=== PATIENT | female | born 1945 | race Caucasian/White ===

== ENCOUNTER → 2018-02-23 11:43 | Outpatient (CLI) | payer MEDICARE, OTHER, SELFPAY ==
[2018-02-23 11:48] LABS: Adenovirus F 40/41, stool Not Detected (NotDetected); Astrovirus Not Detected (NotDetected); Campylobacter Not Detected (NotDetected); Clostridium Difficile A/B, PCR Not Detected (NotDetected); Cryptosporidium Not Detected (NotDetected); Cyclospora Cayetanesis Not Detected (NotDetected); Entamoeba histolytica Not Detected (NotDetected); Enteroaggregative E coli Not Detected (NotDetected); Enteropathogenic E coli Not Detected (NotDetected); Enterotoxigenic E coli Not Detected (NotDetected); Giardia lamblia Not Detected (NotDetected); Norovirus Not Detected (NotDetected); Plesimonas Shigalloides, PCR Not Detected (NotDetected); Rotavirus A Not Detected (NotDetected); Salmonella, PCR Not Detected (NotDetected); Sapovirus Not Detected (NotDetected); Shiga-like toxin E coli Not Detected (NotDetected); Shigella Enterovasive E coli Not Detected (NotDetected); Vibrio Cholerae Not Detected (NotDetected); Vibrio, PCR Not Detected (NotDetected); Yersinia Entercolitica, PCR Not Detected (NotDetected)
[2018-02-23 12:16] LABS: Basophils # 0.1 K/mm3 (0-0.2); Basophils % 0.6 % (0.1-2.0); Eosinophils # 0.2 K/mm3 (0.0-0.4); Eosinophils % 2.2 % (0.1-12.0); Hematocrit 46.1 % (37.0-47.0); Hemoglobin 14.9 g/dL (12.2-16.2); Lymphocytes % 23.8 K/mm3 (10-50); Mean Corpuscular HGB Conc 32.2 g/dL (31.8-35.4); Mean Corpuscular Hemoglobin 30.1 pg (27.0-31.2); Mean Corpuscular Volume 93.5 fl (81-99); Mean Platelet Volume 9.9 fl (7.4-10.4); Monocytes # 0.5 K/mm3 (0.1-1.0); Monocytes % 5.7 % (1.7-9.3); Neutrophils # 5.6 K/mm3 (1.8-7.8); Neutrophils % 67.6 % (37.0-80.0); Platelet Count 214 K/mm3 (142-424); Red Blood Count 4.93 M/mm3 (4.20-5.40); White Blood Count 8.3 K/mm3 (4.8-10.8)
[2018-02-23 12:49] LABS: Anion Gap 16.2 mEq/L (5-15); Blood Urea Nitrogen 23 mg/dL (7-18); Calcium 9.1 mg/dL (8.5-10.1); Carbon Dioxide 20 mmol/L (21.0-32.0); Chloride 110 mmol/L (98-107); Creatinine,Serum 1.15 mg/dL (0.55-1.02); Estimated Glomerular Filt Rate 46 ml/min (>60); GFR (African American) 56 ML/MIN (>60); Glucose 102 mg/dL (74-106); Potassium 3.2 mmoL/L (3.5-5.1); Sodium 143 mmol/L (136-145)
== END ==
PROVIDERS: PCP Internal Medicine; Visit Provider Internal Medicine
DX: K52.9 Noninfective gastroenteritis and colitis, unspecified (principal); I10 Essential (primary) hypertension; D50.9 Iron deficiency anemia, unspecified; I82.509 Chronic embolism and thrombosis of unspecified deep veins of unspecified lower extremity
CPT/HCPCS: 36415; 80048; 85025; 87507

== ENCOUNTER → 2018-02-27 15:45 | Outpatient (CLI) | payer MEDICARE, OTHER, SELFPAY ==
--- NOTE | 2018-02-27 15:56 | MM_ITS ---
MM Dig screening mamm BI w/CAD CAD Screening COMPARISON: Digital mammograms with CAD 02/15/2016 and 02/10/2015 INDICATION: There is no personal or family history of breast cancer. TECHNIQUE: Standard CC and MLO images were obtained. R2 CAD reviewed. FINDINGS: The breasts are composed primarily of fat with minimal scattered fiber glandular densities throughout each breast. However there is a possibly developing ill-defined area of increased density in the upper outer quadrant right breast with poorly defined borders. This in the could be a symmetric glandular tissue but recommend patient return for spot compression views in MLO and CC projection and ultrasound this proved to be a true lesion. There are few scattered benign-appearing calcifications in each breast. There are no suspicious microcalcifications. IMPRESSION: Fatty type breast parenchyma with possible developing asymmetric density right breast BI-RADS Category: 0 Need Additional Imaging Evaluation RECOMMENDED FOLLOW-UP: IMM - IMMEDIATE FOLLOW-UP RECOMMENDED (A letter has been sent to the patient regarding results of the study.)
== END ==
PROVIDERS: Family Provider Internal Medicine; PCP Internal Medicine; Visit Provider Internal Medicine
DX: Z12.31 Encounter for screening mammogram for malignant neoplasm of breast (principal)
CPT/HCPCS: 77067

== ENCOUNTER → 2018-03-13 14:14 | Outpatient (CLI) | payer MEDICARE, OTHER, SELFPAY ==
--- NOTE | 2018-03-13 14:20 | MM_ITS ---
MM Dig mamm DX unilat RT CAD INDICATION: Follow-up abnormal mammogram ORDERING PHYSICIAN: Timi Wen PATIENT AGE: 72 years COMPARISON: None TECHNIQUE: Spot compression views FINDINGS: Asymmetric density in the upper outer aspect of the right breast does appear to compress out as fibroglandular tissue. No discrete mass or malignant appearing microcalcification. Benign-appearing calcifications are present IMPRESSION: No evidence of malignancy BI-RADS Category: 2 Benign Finding(s) RECOMMENDED FOLLOW-UP: 1YR - 1 YEAR FOLLOW-UP (A letter has been sent to the patient regarding results of the study.)
== END ==
PROVIDERS: Family Provider Internal Medicine; PCP Internal Medicine; Visit Provider Internal Medicine
DX: R92.8 Other abnormal and inconclusive findings on diagnostic imaging of breast (principal)
CPT/HCPCS: 77065

== ENCOUNTER → 2018-06-13 10:47 | Outpatient (CLI) | payer MEDICARE, OTHER, SELFPAY ==
[2018-06-13 11:27] LABS: INR 3.28 (0.9-1.1); Prothrombin Time 32.6 seconds (9.4-11.8)
== END ==
PROVIDERS: Visit Provider Internal Medicine
DX: Z51.81 Encounter for therapeutic drug level monitoring (principal); Z79.01 Long term (current) use of anticoagulants; I82.409 Acute embolism and thrombosis of unspecified deep veins of unspecified lower extremity; I26.99 Other pulmonary embolism without acute cor pulmonale
CPT/HCPCS: 36415; 85610

== ENCOUNTER → 2018-06-29 14:10 | Outpatient (CLI) | payer MEDICARE, OTHER, SELFPAY ==
[2018-06-29 14:40] LABS: INR 1.57 (0.9-1.1)
== END ==
PROVIDERS: Visit Provider Internal Medicine
DX: Z51.81 Encounter for therapeutic drug level monitoring (principal); Z79.01 Long term (current) use of anticoagulants; I82.409 Acute embolism and thrombosis of unspecified deep veins of unspecified lower extremity
CPT/HCPCS: 36415; 85610

== ENCOUNTER → 2018-07-13 11:16 | Outpatient (CLI) | payer MEDICARE, OTHER, SELFPAY ==
[2018-07-13 11:43] LABS: Prothrombin Time 25.1 seconds (9.4-11.8)
== END ==
PROVIDERS: Visit Provider Internal Medicine
DX: Z51.81 Encounter for therapeutic drug level monitoring (principal); Z79.01 Long term (current) use of anticoagulants; I82.409 Acute embolism and thrombosis of unspecified deep veins of unspecified lower extremity; I26.99 Other pulmonary embolism without acute cor pulmonale
CPT/HCPCS: 36415; 85610

== ENCOUNTER → 2018-12-07 14:40 | Outpatient (CLI) | payer MEDICARE, OTHER, SELFPAY ==
[2018-12-07 15:26] LABS: INR 3.04 (0.9-1.1)
== END ==
PROVIDERS: Visit Provider Internal Medicine
DX: Z51.81 Encounter for therapeutic drug level monitoring (principal); Z79.01 Long term (current) use of anticoagulants; I82.409 Acute embolism and thrombosis of unspecified deep veins of unspecified lower extremity; I26.99 Other pulmonary embolism without acute cor pulmonale
CPT/HCPCS: 36415; 85610

== ENCOUNTER → 2019-01-18 15:30 | Outpatient (CLI) | payer MEDICARE, OTHER, SELFPAY ==
[2019-01-18 15:49] LABS: Basophils # 0.1 K/mm3 (0-0.2); Basophils % 0.6 % (0.1-2.0); Eosinophils # 0.2 K/mm3 (0.0-0.4); Eosinophils % 2.1 % (0.1-12.0); Hematocrit 39.7 % (37.0-47.0); Hemoglobin 12.4 g/dL (12.2-16.2); INR 2.33 (0.9-1.1); Lymphocytes # 2.3 K/mm3 (0.7-4.5); Lymphocytes % 30.1 % (10-50); Mean Corpuscular HGB Conc 31.3 g/dL (31.8-35.4); Mean Corpuscular Hemoglobin 28.7 pg (27.0-31.2); Mean Corpuscular Volume 91.8 fl (81-99); Mean Platelet Volume 10.1 fl (7.4-10.4); Monocytes # 0.3 K/mm3 (0.1-1.0); Monocytes % 4.4 % (1.7-9.3); Neutrophils # 4.7 K/mm3 (1.8-7.8); Neutrophils % 62.8 % (37.0-80.0); Platelet Count 191 K/mm3 (142-424); Prothrombin Time 23.3 seconds (9.4-11.8); Red Blood Count 4.32 M/mm3 (4.20-5.40); Red Cell Distribution Width 13.2 % (11.5-17.5); White Blood Count 7.5 K/mm3 (4.8-10.8)
== END ==
PROVIDERS: Visit Provider Internal Medicine
DX: I82.409 Acute embolism and thrombosis of unspecified deep veins of unspecified lower extremity (principal); I26.99 Other pulmonary embolism without acute cor pulmonale; Z79.01 Long term (current) use of anticoagulants
CPT/HCPCS: 85025; 85610

== ENCOUNTER 2019-12-15 11:29 | Emergency (ER) | payer MEDICARE, OTHER, SELFPAY ==
[2019-12-15 11:34] VITALS: BP 129/72; PULSE 84; RESP 16; TEMP 37.4; O2SAT 96; BMI 28.5
--- NOTE | 2019-12-15 11:57 | HMH.EDGENADL ---
ED Disposition Clinical Impression: Sciatica associated with disorder of lumbar spine Disposition: Home, Self-Care Condition on Discharge: Good Instructions: DI for Acute Pain -- Adult Prescriptions: Nabumetone 750 mg PO BID 10 Days #20 tab Prescription Printed Methocarbamol [Robaxin 500mg Tab*] 500 mg PO QID 10 Days #30 tab Prescription Printed Referrals: Timi Wen [Primary Care Provider] - - Critical Care Critical Care Time: No Attestation: On 12/15/19, the high probability of a clinically significant, sudden or life threatening deterioration of the following system(s) required my full and direct attention, intervention and personal management. The time I documented below is in addition to time spent performing reported procedures but includes the following listed in this critical care notation. Medical Decision Making - Medical Records Medical records reviewed: Yes: I reviewed the patient's medical records. - Luis Inquiry Pt receiving controlled substance: No Vital Signs: 12/15/19 11:34 Temperature 99.4 F Temperature Source Oral Pulse Rate [Right Radial] 84 Respiratory Rate 16 Blood Pressure [Right Arm] 129/72 Blood Pressure Mean [Right Arm] 91 Blood Pressure Source [Right Arm] Automatic Cuff Blood Pressure Position [Right Arm] Sitting 02 Sat by Pulse Oximetry 96 Oxygen Delivery Method Room Air - Lab Data Lab results reviewed: Yes: I reviewed the patient's lab results. General Adult HPI - General Chief complaint: PAIN Stated complaint: Rt. low back pain Time Seen by Provider: 12/15/19 11:57 Mode of Arrival: Wheelchair Limitations: No Limitations Description of Symptoms (Recalled from ER Triage Doc. by RN): Pt c/o lower back pain on the R side radiating down her R hip and leg. Pt reports she has had sciatic pain in the past, states this pain is similar. Pt reports pain present x4 days. - History of Present Illness HPI narrative: 73-year-old female comes in complaining of acute on chronic lower back pain. She states that she has had this back pain before that the pain, radiates down into her gluteal region and down the leg. She states that she has been a little more active the last few days than normal and she feels like that has exacerbated her sciatica. Patient denies any bowel or bladder incontinence patient denies any overt numbness or loss of muscle strength in the leg. Patient also denies any recent fever shakes or chills. - Related Data Home Medications Medication Instructions Recorded Confirmed Aspirin 81 mg PO DAILY 12/15/19 12/15/19 Ferrous Sulfate [Ferrous Sulfate 325 mg PO DAILY 12/15/19 12/15/19 325mg Tab] Warfarin Sodium [Coumadin 2.5mg 2.5 mg PO DAILY 12/15/19 12/15/19 tablet] Previous Rx's Medication Instructions Recorded Methocarbamol [Robaxin 500mg Tab*] 500 mg PO QID 10 Days #30 tab 12/15/19 Nabumetone 750 mg PO BID 10 Days #20 tab 12/15/19 Allergies Allergy/AdvReac Type Severity Reaction Status Date / Time oxaprozin Allergy Intermediate I-RASH Unverified 06/13/17 14:13 [facility] History - Hepatitis A Screen Drug use history?: No High risk sexual behaviors?: No History of sexually transmitted infection?: No Currently employed?: No Childcare worker?: No Do you have indoor plumbing?: Yes Do you have electricity?: Yes Attestation statement:: This patient has been screened for Hepatitis A risk factors. I have reviewed the patient's past medical history: Yes Medical History: Denies:: Diabetes Mellitus Type 1, Diabetes Mellitus Type 2 - Social History Alcohol Intake: never Occupational Status: employed ROS Obtained: Yes All systems reviewed & no additional complaints - Constitutional Constitutional: Reports system reviewed and no additional complaints, except as docu - Eyes Eyes: Reports system reviewed and no additional complaints, except as docu - ENT Ears, Nose, Mouth, and Throat: Reports system reviewed and
[2019-12-15 12:36] VITALS: BP 111/54; PULSE 80; RESP 18; TEMP 37.4; O2SAT 97
== END 2019-12-15 12:36 | disposition home or self-care (01) ==
PROVIDERS: Emergency Provider Family Medicine; PCP Internal Medicine
DX: M54.41 Lumbago with sciatica, right side (principal); Z88.8 Allergy status to other drugs, medicaments and biological substances; Z90.79 Acquired absence of other genital organ(s); Z86.711 Personal history of pulmonary embolism; Z79.01 Long term (current) use of anticoagulants; Z98.84 Bariatric surgery status
CPT/HCPCS: 99281

== ENCOUNTER → 2021-01-08 07:43 | Outpatient (CLI) | payer MEDICARE, OTHER, SELFPAY ==
[2021-01-08 08:22] LABS: Prothrombin Time 24.5 seconds (10.1-12.5)
== END ==
PROVIDERS: Visit Provider Internal Medicine
DX: Z51.81 Encounter for therapeutic drug level monitoring (principal); Z79.01 Long term (current) use of anticoagulants; I48.91 Unspecified atrial fibrillation
CPT/HCPCS: 36415; 85610

== ENCOUNTER 2021-06-19 14:25 | Emergency (ER) | payer MEDICARE, OTHER, SELFPAY ==
[2021-06-19 15:27] VITALS: BP 135/56; PULSE 78; RESP 18; TEMP 37.8; O2SAT 97; BMI 21.0
[2021-06-19 15:30] VITALS: BP 135/56; PULSE 68; O2SAT 96
--- NOTE | 2021-06-19 15:36 | XR_ITS ---
PROCEDURE INFORMATION: Exam: XR Chest Exam date and time: 06/19/2021 3:36 PM Age: 75 years old Clinical indication: Shortness of breath; Additional info: Covid, SOB TECHNIQUE: Imaging protocol: XR of the chest. Views: 2 views. COMPARISON: CR CXR CHEST(2 VIEWS-NOT PORTABLE) 09/21/2015 4:26 PM FINDINGS: Tubes, catheters and devices: Surgical clips in the epigastrium. Lungs: No definite acute pulmonary findings. No pulmonary consolidation. Lung volumes within normal limits. Minimal subsegmental atelectasis in the lateral periphery of the right upper lobe. Pleural spaces: Unremarkable. No significant pleural effusion. No pneumothorax. Heart/Mediastinum: The cardiac silhouette is normal. Bones/joints: Ankylosing thoracic spondyloarthropathy. Progressive arthritic changes at the glenohumeral joint and acromioclavicular joint. Other findings: Significant weight loss compared with the prior CT from 2016. IMPRESSION: 1. Minimal subsegmental atelectasis in the lateral upper right lung, no consolidation. 2. Additional nonemergency and chronic findings as above. 3. Note: Subtle ground-glass opacities of COVID-19 pneumonia can be radiographically occult on plain x-ray. If further imaging is warranted by the clinical findings or course, recommend CT.
[2021-06-19 15:46] LABS: Coronavirus 19, PCR Not Detected (NotDetected); Influenza A, PCR Not Detected (NotDetected); Influenza B, PCR Not Detected (NotDetected)
[2021-06-19 16:48] LABS: Basophils % 0.4 % (0.1-2.0); Eosinophils % 0.3 % (0.1-12.0); Hemoglobin 13.5 g/dL (12.2-16.2); Lymphocytes # 1.1 K/mm3 (0.7-4.5); Lymphocytes % 9.4 % (10-50); Mean Corpuscular HGB Conc 31.4 g/dL (31.8-35.4); Mean Corpuscular Hemoglobin 31.1 pg (27.0-31.2); Mean Corpuscular Volume 99.2 fl (81-99); Mean Platelet Volume 11.3 fl (7.4-10.4); Monocytes # 0.7 K/mm3 (0.1-1.0); Monocytes % 5.7 % (1.7-9.3); Neutrophils # 10.1 K/mm3 (1.8-7.8); Neutrophils % 84.3 % (37.0-80.0); Platelet Count 161 K/mm3 (142-424); Red Blood Count 4.33 M/mm3 (4.20-5.40); Red Cell Distribution Width 12.7 % (11.5-17.5); White Blood Count 11.9 K/mm3 (4.8-10.8)
[2021-06-19 16:49] LABS: Alanine Aminotransferase 18 U/L (12-78); Albumin Level 3.5 g/dl (3.5-5.0); Albumin/Globulin Ratio 1.4 (1.1-1.8); Alkaline Phosphatase 62 U/L (38-126); Anion Gap 7.6 mEq/L (5-15); Aspartate Amino Transferase 24 U/L (14-36); Bilirubin,Total 0.7 mg/dl (0.2-1.3); Blood Urea Nitrogen 16 mg/dl (7-17); Carbon Dioxide 31 mmol/L (22.0-30.0); Chloride 103 mmol/L (98-107); Creatinine Clearance Estimated 40 mL/min (50-200); Estimated Glomerular Filt Rate 82 ml/min (>60); GFR (African American) 99 ML/MIN (>60); Globulin 2.5 g/dL (1.3-3.2); Glucose 113 mg/dl (74-100); Potassium 3.6 mmoL/L (3.5-5.1); Sodium 138 mmol/L (136-145)
--- NOTE | 2021-06-19 18:05 | HMH.EDGENADL ---
ED Disposition Clinical Impression: Viral upper respiratory infection Disposition: Home, Self-Care Condition on Discharge: Good Instructions: DI for Viral Upper Respiratory Infection -- Adult Additional Instructions: Tylenol for fever, aches, pain. Rest and drink plenty of fluids. Off work until no fever for 24 hours and symptoms improved. Referrals: Timi Wen [Primary Care Provider] - - Critical Care Critical Care Time: No Attestation: On 06/19/21, the high probability of a clinically significant, sudden or life threatening deterioration of the following system(s) required my full and direct attention, intervention and personal management. The time I documented below is in addition to time spent performing reported procedures but includes the following listed in this critical care notation. Medical Decision Making - Luis Inquiry Pt receiving controlled substance: No Vital Signs: 06/19/21 15:27 06/19/21 15:30 Temperature 100.1 F H Temperature Source Oral Pulse Rate [Right Radial] 78 68 Respiratory Rate 18 Blood Pressure [Right Arm] 135/56 L 135/56 L Blood Pressure Mean [Right Arm] 82 82 Blood Pressure Source [Right Arm] Automatic Cuff Automatic Cuff Blood Pressure Position [Right Arm] Supine Supine 02 Sat by Pulse Oximetry 97 96 Oxygen Delivery Method Room Air Room Air - Lab Data Lab Results 06/19/21 15:14: SARS-CoV-2 (PCR) Not detected, Influenza A Untype (PCR) Not detected, Influenza Type B (PCR) Not detected 06/19/21 16:03: WBC 11.9 H, RBC 4.33, Hgb 13.5, Hct 43.0, MCV 99.2 H, MCH 31.1, MCHC 31.4 L, RDW 12.7, Plt Count 161, MPV 11.3 H, Neut % (Auto) 84.3 H, Lymph % (Auto) 9.4 L, [place] % (Auto) 5.7, Eos % (Auto) 0.3, Baso % (Auto) 0.4, Neut # (Auto) 10.1 H, Lymph # (Auto) 1.1, [place] # (Auto) 0.7, Eos # (Auto) 0.0, Baso # (Auto) 0.0 06/19/21 16:03: Sodium 138, Potassium 3.6, Chloride 103, Carbon Dioxide 31 H, Anion Gap 7.6, BUN 16, Creatinine 0.70, Estimated Creat Clear 40, Estimated GFR 82, Est GFR ( Amer) 99, Glucose 113 H, Calcium 9.0, Total Bilirubin 0.7, AST 24, ALT 18, Alkaline Phosphatase 62, Total Protein 6.0 L, Albumin 3.5, Globulin 2.5, Albumin/Globulin Ratio 1.4 Result diagrams: 06/19/21 16:03 06/19/21 16:03 Orders (Tests/Meds): ED MEDICATIONS Discontinued Medications Generic Name Dose Route Start Last Admin Trade Name Levar PRN Reason Stop Dose Admin Acetaminophen 500 mg 06/19/21 15:37 06/19/21 15:45 Acetaminophen 500mg Tab PO 06/19/21 15:38 500 mg ONCE ONE Administration - Radiology Data #1 Image(s): Chest Image Reviewed: Yes I reviewed the patient's radiology image, Yes I have reviewed radiologist's interpretation PROCEDURE INFORMATION: Exam: XR Chest Exam date and time: 06/19/2021 3:36 PM Age: 75 years old Clinical indication: Shortness of breath; Additional info: [place], SOB TECHNIQUE: Imaging protocol: XR of the chest. Views: 2 views. COMPARISON: CR CXR CHEST(2 VIEWS-NOT PORTABLE) 09/21/2015 4:26 PM FINDINGS: Tubes, catheters and devices: Surgical clips in the epigastrium. Lungs: No definite acute pulmonary findings. No pulmonary consolidation. Lung volumes within normal limits. Minimal subsegmental atelectasis in the lateral periphery of the right upper lobe. Pleural spaces: Unremarkable. No significant pleural effusion. No pneumothorax. Heart/Mediastinum: The cardiac silhouette is normal. Bones/joints: Ankylosing thoracic spondyloarthropathy. Progressive arthritic changes at the glenohumeral joint and acromioclavicular joint. Other findings: Significant weight loss compared with the prior CT from 2016. IMPRESSION: 1. Minimal subsegmental atelectasis in the lateral upper right lung, no consolidation. 2. Additional nonemergency and chronic findings as above. 3. Note: Subtle ground-glass opacities of COVID-19 pneumonia can be radiographically occult on plain x-ray. If further imaging
[2021-06-19 19:15] VITALS: BP 113/74; PULSE 74; RESP 16; TEMP 36.6; O2SAT 98
== END 2021-06-19 19:16 | disposition home or self-care (01) ==
PROVIDERS: Emergency Provider Emergency Medicine; PCP Internal Medicine
DX: J06.9 Acute upper respiratory infection, unspecified (principal); Z20.822 Contact with and (suspected) exposure to COVID-19
CPT/HCPCS: 71046; 80053; 85025; 99282; C9803; U0003; U0005

== ENCOUNTER → 2021-06-23 09:46 | Outpatient (CLI) | payer MEDICARE, OTHER, SELFPAY ==
--- NOTE | 2021-06-23 16:21 | XR_ITS ---
PROCEDURE INFORMATION: Exam: XR Chest Exam date and time: 06/23/2021 4:21 PM Age: 75 years old Clinical indication: Fever; Additional info: Fever, cough, negative covid test TECHNIQUE: Imaging protocol: XR of the chest. Views: 2 views. COMPARISON: CR XR CHEST 2V 06/19/2021 3:55 PM FINDINGS: Lungs: Unremarkable. No consolidation. Pleural spaces: Unremarkable. No pleural effusion. No pneumothorax. Heart/Mediastinum: Unremarkable. No cardiomegaly. Bones/joints: Unremarkable. IMPRESSION: No acute findings.
[2021-06-23 16:43] LABS: Basophils % 0.2 % (0.1-2.0); Eosinophils % 0.2 % (0.1-12.0); Hematocrit 39.1 % (37.0-47.0); Hemoglobin 12.4 g/dL (12.2-16.2); Lymphocytes # 1.4 K/mm3 (0.7-4.5); Lymphocytes % 9.6 % (10-50); Mean Corpuscular HGB Conc 31.8 g/dL (31.8-35.4); Mean Corpuscular Hemoglobin 31.1 pg (27.0-31.2); Mean Corpuscular Volume 97.8 fl (81-99); Mean Platelet Volume 10.7 fl (7.4-10.4); Monocytes # 0.7 K/mm3 (0.1-1.0); Monocytes % 4.6 % (1.7-9.3); Neutrophils # 12.9 K/mm3 (1.8-7.8); Neutrophils % 85.4 % (37.0-80.0); Platelet Count 235 K/mm3 (142-424); Red Cell Distribution Width 12.8 % (11.5-17.5); White Blood Count 15.1 K/mm3 (4.8-10.8)
[2021-06-23 16:45] LABS: MANUAL DIFFERENTIAL MANUAL DIFFERENTIAL (MANUAL DIFF)
[2021-06-23 17:03] LABS: INR 5.11 (0.9-1.1); Prothrombin Time 51.2 seconds (10.1-12.5)
[2021-06-23 17:05] LABS: Chloride 105 mmol/L (98-107); Potassium 3.2 mmoL/L (3.5-5.1); Sodium 140 mmol/L (136-145)
[2021-06-23 17:09] LABS: Anion Gap 10.2 mEq/L (5-15); Calcium 8.1 mg/dl (8.4-10.2); Carbon Dioxide 28 mmol/L (22.0-30.0); Glucose 100 mg/dl (74-100)
[2021-06-23 17:13] LABS: Blood Urea Nitrogen 15 mg/dl (7-17); Estimated Glomerular Filt Rate 82 ml/min (>60); GFR (African American) 99 ML/MIN (>60)
[2021-06-23 19:39] LABS: Lymphocytes % 10 % (10-50); Monocytes % 8 % (2-9); Neutrophils % 74 % (42-76); Platelet Estimate Normal; RBC Morphology Normal; Total Cells Counted 100
== END ==
PROVIDERS: PCP Internal Medicine; Visit Provider Internal Medicine
DX: Z20.822 Contact with and (suspected) exposure to COVID-19 (principal); R50.9 Fever, unspecified; R05.9 Cough, unspecified; Z51.81 Encounter for therapeutic drug level monitoring; Z79.01 Long term (current) use of anticoagulants
CPT/HCPCS: 36415; 71046; 80048; 85007; 85025; 85610; 85730; 87275; 87276; C9803; U0003; U0005

== ENCOUNTER → 2021-06-29 16:35 | Outpatient (CLI) | payer MEDICARE, OTHER, SELFPAY ==
[2021-06-29 17:22] LABS: INR 1.33 (0.9-1.1); Prothrombin Time 14.7 seconds (10.1-12.5)
== END ==
PROVIDERS: Visit Provider Internal Medicine
DX: T45.511A Poisoning by anticoagulants, accidental (unintentional), initial encounter (principal)
CPT/HCPCS: 85610

== ENCOUNTER → 2021-07-13 22:55 | Outpatient (CLI) | payer MEDICARE, OTHER, SELFPAY ==
[2021-07-13 23:30] LABS: INR 1.49 (0.9-1.1); Prothrombin Time 16.3 seconds (10.1-12.5)
== END ==
PROVIDERS: Visit Provider Internal Medicine
DX: T45.511D Poisoning by anticoagulants, accidental (unintentional), subsequent encounter (principal); Z51.81 Encounter for therapeutic drug level monitoring
CPT/HCPCS: 85610

== ENCOUNTER 2021-08-04 19:33 | Emergency (ER) | payer MEDICARE, OTHER, SELFPAY ==
[2021-08-04 19:33] VITALS: BP 142/73; PULSE 86; RESP 16; TEMP 37; O2SAT 99; BMI 22.0
[2021-08-04 19:46] VITALS: BP 177/65; PULSE 87; O2SAT 99
--- NOTE | 2021-08-04 19:49 | HMH.EDGENADL ---
ED Disposition Condition on Discharge: Good - Critical Care Critical Care Time: No <Zafar Lynn - Last Filed: 08/04/21 19:49> <Tad Weinstein - Last Filed: 08/04/21 22:40> Clinical Impression: Prolonged INR Hematuria Qualifiers: Hematuria type: gross Qualified Code(s): R31.0 - Gross hematuria Gastritis Qualifiers: Gastritis type: unspecified gastritis Chronicity: unspecified Gastritis bleeding: without bleeding Qualified Code(s): K29.70 - Gastritis, unspecified, without bleeding Disposition: Home, Self-Care Instructions: DI for Hematuria Additional Instructions: hold nsaif and coumadin - call pcp in am Referrals: Timi Wen [Primary Care Provider] - Attestation: On 08/04/21, the high probability of a clinically significant, sudden or life threatening deterioration of the following system(s) required my full and direct attention, intervention and personal management. The time I documented below is in addition to time spent performing reported procedures but includes the following listed in this critical care notation. Medical Decision Making - Medical Records Medical records reviewed: Yes: I reviewed the patient's medical records. - Luis Inquiry Pt receiving controlled substance: No <Zafar Lynn - Last Filed: 08/04/21 19:49> - Lab Data Lab results reviewed: Yes: I reviewed the patient's lab results. Result diagrams: 08/04/21 19:52 08/04/21 19:52 - CT Data CT Scan: Abdomen, Pelvis Time Received: 22:[address] Reviewed: Yes: I have viewed the radiologist's interpretation Preliminary Findings: Abnormal (see report ) <Tad Weinstein - Last Filed: 08/04/21 22:40> Vital Signs: 08/04/21 19:33 08/04/21 19:46 08/04/21 19:57 Temperature 98.6 F Temperature Source Oral Pulse Rate 87 87 Pulse Rate [Left] 86 Respiratory Rate 16 Blood Pressure 177/65 H 142/73 H Blood Pressure [Right Arm] 142/73 H Blood Pressure Mean [Right Arm] 96 02 Sat by Pulse Oximetry 99 99 98 08/04/21 20:00 08/04/21 20:30 Temperature Temperature Source Pulse Rate 91 H 71 Pulse Rate [Left] Respiratory Rate Blood Pressure 159/75 H 130/63 Blood Pressure [Right Arm] Blood Pressure Mean [Right Arm] 02 Sat by Pulse Oximetry 98 99 - Lab Data Lab Results 08/04/21 19:44: Urine Color Red, Urine Appearance Turbid, Urine pH 6.5, Ur Specific [place] >= 1.030, Urine Protein 3+, Urine Glucose (UA) Negative, Urine Ketones Trace, Urine Blood 3+, Urine Nitrate Positive, Urine Bilirubin Negative, Urine Urobilinogen 0.2, Ur Leukocyte Esterase Negative, Urine RBC Tntc 08/04/21 19:52: WBC 10.8, RBC 3.57 L, Hgb 11.1 L, Hct 35.2 L, MCV 98.8, MCH 31.0, MCHC 31.4 L, RDW 13.8, Plt Count 216, MPV 10.0, Neut % (Auto) 78.0, Lymph % (Auto) 16.1, [place] % (Auto) 3.4, Eos % (Auto) 1.5, Baso % (Auto) 0.9, Neut # (Auto) 8.4 H, Lymph # (Auto) 1.7, [place] # (Auto) 0.4, Eos # (Auto) 0.2, Baso # (Auto) 0.1 08/04/21 19:52: Sodium 141, Potassium 3.8, Chloride 110 H, Carbon Dioxide 26, Anion Gap 8.8, BUN 25 H, Creatinine 0.80, Estimated Creat Clear 39, Estimated GFR 70, Est GFR ( Amer) 85, Glucose 118 H, Calcium 9.3, Total Bilirubin 0.6, AST 62 H, ALT 55, Alkaline Phosphatase 77, Total Protein 6.6, Albumin 3.9, Globulin 2.7, Albumin/Globulin Ratio 1.4 08/04/21 19:52: ESR 60 H 08/04/21 19:52: C-Reactive Protein 20.2 H 08/04/21 19:54: PT 90.0 H, INR 8.00 H 08/04/21 19:54: Procalcitonin 0.064 Orders (Tests/Meds): ED MEDICATIONS Discontinued Medications Generic Name Dose Route Start Last Admin Trade Name Freq PRN Reason Stop Dose Admin Iopamidol 75 ml 08/04/21 21:35 08/04/21 21:38 Iopamidol-370 (76%);100ml Bottle IV 08/04/21 21:36 75 ml ONCE ONE Administration Phytonadione 5 mg 08/04/21 22:27 Phytonadione 10mg/Ml Ampule SQ 08/04/21 22:28 ONCE ONE Sodium Chloride 10 ml 08/04/21 21:35 08/04/21 21:38 Sodium Chloride 0.9% 10ml Syr (Rad Only) IV 08/04/21 21:36 10 ml
[2021-08-04 19:52] LABS: Microscopic, Urine URINE MICROSCOPIC (MICROSCOPIC)
[2021-08-04 19:57] VITALS: BP 142/73; PULSE 87; O2SAT 98
[2021-08-04 20:00] VITALS: BP 159/75; PULSE 91; O2SAT 98
[2021-08-04 20:10] LABS: Basophils # 0.1 K/mm3 (0-0.2); Basophils % 0.9 % (0.1-2.0); Eosinophils # 0.2 K/mm3 (0.0-0.4); Eosinophils % 1.5 % (0.1-12.0); Hematocrit 35.2 % (37.0-47.0); Hemoglobin 11.1 g/dL (12.2-16.2); Lymphocytes # 1.7 K/mm3 (0.7-4.5); Lymphocytes % 16.1 % (10-50); Mean Corpuscular HGB Conc 31.4 g/dL (31.8-35.4); Mean Corpuscular Volume 98.8 fl (81-99); Monocytes # 0.4 K/mm3 (0.1-1.0); Monocytes % 3.4 % (1.7-9.3); Neutrophils # 8.4 K/mm3 (1.8-7.8); Platelet Count 216 K/mm3 (142-424); Red Blood Count 3.57 M/mm3 (4.20-5.40); Red Cell Distribution Width 13.8 % (11.5-17.5); White Blood Count 10.8 K/mm3 (4.8-10.8)
[2021-08-04 20:29] LABS: Appearance,Urine TURBID (Clear); Blood, Urine 3+ (Negative); Color,Urine RED (Yellow); Glucose,Urine (UA) Negative (Negative); Ketones,Urine TRACE (Negative); Leukocyte Esterase,Urine Negative (Negative); Nitrate,Urine POSITIVE (Negative); PH,Urine 6.5 (5.0-8.5); Protein,Urine 3+ (Negative); Specific Gravity, Urine >= 1.030 (1.005-1.030); Urobilinogen,Urine 0.2 EU/dl (0.2)
[2021-08-04 20:30] VITALS: BP 130/63; PULSE 71; O2SAT 99
[2021-08-04 20:33] LABS: Bilirubin,Urine Negative (Negative)
[2021-08-04 20:35] LABS: RBC,Urine TNTC #/hpf (0-3)
[2021-08-04 20:42] LABS: Alanine Aminotransferase 55 U/L (12-78); Albumin Level 3.9 g/dl (3.5-5.0); Albumin/Globulin Ratio 1.4 (1.1-1.8); Alkaline Phosphatase 77 U/L (38-126); Anion Gap 8.8 mEq/L (5-15); Aspartate Amino Transferase 62 U/L (14-36); Bilirubin,Total 0.6 mg/dl (0.2-1.3); Blood Urea Nitrogen 25 mg/dl (7-17); Calcium 9.3 mg/dl (8.4-10.2); Carbon Dioxide 26 mmol/L (22.0-30.0); Chloride 110 mmol/L (98-107); Creatinine Clearance Estimated 39 mL/min (50-200); Estimated Glomerular Filt Rate 70 ml/min (>60); GFR (African American) 85 ML/MIN (>60); Globulin 2.7 g/dL (1.3-3.2); Glucose 118 mg/dl (74-100); Potassium 3.8 mmoL/L (3.5-5.1); Sodium 141 mmol/L (136-145); Total Protein,Serum 6.6 g/dl (6.3-8.2)
--- NOTE | 2021-08-04 21:09 | CT_ITS ---
PROCEDURE INFORMATION: Exam: CT Abdomen And Pelvis With Contrast Exam date and time: 08/04/2021 9:09 PM Age: 75 years old Clinical indication: Other: Vaginal or gi bleeding; Prior surgery TECHNIQUE: Imaging protocol: Computed tomography of the abdomen and pelvis with contrast. Radiation optimization: All CT scans at this facility use at least one of these dose optimization techniques: automated exposure control; mA and/or kV adjustment per patient size (includes targeted exams where dose is matched to clinical indication); or iterative reconstruction. Contrast material: ISOVUE; Contrast volume: 75 ml; Contrast route: IV; COMPARISON: CR XR CHEST 2V 06/23/2021 4:23 PM FINDINGS: Lungs: Scattered ground-glass opacities in the lung bases concerning for pneumonia. Liver: Normal. No mass. Gallbladder and bile ducts: Cholecystectomy. Mild intrahepatic and common bile duct dilatation could be due to post cholecystectomy state. Pancreas: Normal. No ductal dilation. Spleen: Normal. No splenomegaly. Adrenal glands: Normal. No mass. Kidneys and ureters: Normal. No hydronephrosis. Stomach and bowel: There is gastric wall thickening most pronounced involving the pyloric region concerning for severe gastritis. No small bowel obstruction. No colitis. Appendix: No evidence of appendicitis. Intraperitoneal space: Unremarkable. No free air. No significant fluid collection. Vasculature: IVC filter. Lymph nodes: Unremarkable. No enlarged lymph nodes. Urinary bladder: Unremarkable as visualized. Reproductive: Hysterectomy. Bones/joints: Posterior lumbar fusion at L4-L5. Soft tissues: Unremarkable. IMPRESSION: 1. The scattered areas of pneumonia in the lung bases and mild atelectasis. 2. Severe gastritis. 3. Cholecystectomy. 4. No acute renal abnormality. COMMENTS: For patients with an IVC filter, recommend assessment for a management plan for the patient's IVC filter. If there is no established management plan, recommend referral to an interventional clinician on a nonemergent basis for evaluation.
[2021-08-04 21:38] LABS: C-Reactive Protein 20.2 mg/L (0-4)
[2021-08-04 22:03] LABS: Procalcitonin 0.064 ng/mL (0.0-2.0)
[2021-08-04 22:04] LABS: Erythrocyte Sedimentation Rate 60 mm/hr (0-30)
[2021-08-04 23:13] VITALS: BP 125/54; PULSE 72; RESP 19; TEMP 36.8; O2SAT 97
== END 2021-08-04 23:30 | disposition home or self-care (01) ==
PROVIDERS: Emergency Medicine; Emergency Provider Emergency Medicine; PCP Internal Medicine
DX: K29.70 Gastritis, unspecified, without bleeding (principal); R31.0 Gross hematuria; R79.1 Abnormal coagulation profile; Z79.899 Other long term (current) drug therapy
CPT/HCPCS: 74177; 80053; 81001; 84145; 85025; 85610; 85651; 86140; 87086; 87088; 87186; 96372; 99282; Q9967

== ENCOUNTER 2021-08-05 15:45 | Emergency (ER) | payer MEDICARE, OTHER, SELFPAY ==
[2021-08-05] VITALS (8 sets, daily range): BP systolic 116–146; BP diastolic 33–75; PULSE 76–87; RESP 12–29; TEMP 36.6–38.1; O2SAT 98–99; BMI 21.3; BMI 22.8
--- NOTE | 2021-08-05 16:28 | CT_ITS ---
PROCEDURE INFORMATION: Exam: CT Head Without Contrast Exam date and time: 08/05/2021 4:28 PM Age: 75 years old Clinical indication: Weakness, extremity; Additional info: Headache, generalized weakness TECHNIQUE: Imaging protocol: Computed tomography of the head without contrast. Radiation optimization: All CT scans at this facility use at least one of these dose optimization techniques: automated exposure control; mA and/or kV adjustment per patient size (includes targeted exams where dose is matched to clinical indication); or iterative reconstruction. COMPARISON: No relevant prior studies available. FINDINGS: Brain: Acute subdural hemorrhage in the right frontal region. Maximum thickness of the hemorrhage is 1.7 cm. Thin acute hemorrhage also seen in the right parafalcine region. There is a 2-3 mm of leftward midline shift. Cerebral ventricles: No ventriculomegaly. Paranasal sinuses: Visualized sinuses are unremarkable. No fluid levels. Mastoid air cells: Visualized mastoid air cells are well aerated. Bones/joints: Unremarkable. No acute fracture. Soft tissues: Unremarkable. IMPRESSION: Right frontal and right parafalcine acute subdural hemorrhage. Minor leftward midline shift.
--- NOTE | 2021-08-05 16:48 | HMH.EDGENADL ---
ED Disposition Clinical Impression: Subdural hematoma, Gross hematuria Disposition: Xfer Short-Term Hosp Condition on Discharge: Serious Referrals: Timi Wen [Primary Care Provider] - Forms: Transfer Record - ED - Critical Care Critical Care Time: Yes Attestation: On 08/05/21, the high probability of a clinically significant, sudden or life threatening deterioration of the following system(s) required my full and direct attention, intervention and personal management. The time I documented below is in addition to time spent performing reported procedures but includes the following listed in this critical care notation. Total Critical Care Time: 45 Vital system(s) involved:: Central Nervous System My critical care processes included: Assessment & monitoring of V/S, Initial and Re-exams, Data Review/Interpretation, Coordinating Care, Medication Orders and management, Documentation Medical Decision Making - Luis Inquiry Pt receiving controlled substance: No Vital Signs: 08/05/21 15:47 08/05/21 16:48 08/05/21 17:00 Temperature 100.5 F H Temperature Source Oral Pulse Rate 80 80 Pulse Rate [Radial] 87 Respiratory Rate 16 13 Blood Pressure 116/58 L 130/62 Blood Pressure [Right Radial Artery] 146/75 H Blood Pressure Mean [Right Radial Artery] 98 Blood Pressure Position Blood Pressure Position [Right Radial Artery] Sitting 02 Sat by Pulse Oximetry 98 98 99 Oxygen Delivery Method Room Air 08/05/21 17:30 08/05/21 18:00 08/05/21 18:31 Temperature Temperature Source Pulse Rate 76 80 84 Pulse Rate [Radial] Respiratory Rate 29 H 16 17 Blood Pressure 131/62 132/66 143/33 H Blood Pressure [Right Radial Artery] Blood Pressure Mean [Right Radial Artery] Blood Pressure Position Blood Pressure Position [Right Radial Artery] 02 Sat by Pulse Oximetry 99 99 99 Oxygen Delivery Method 08/05/21 18:32 08/05/21 19:09 Temperature 98 F Temperature Source Oral Pulse Rate 86 87 Pulse Rate [Radial] Respiratory Rate 12 16 Blood Pressure 129/57 L 129/57 L Blood Pressure [Right Radial Artery] Blood Pressure Mean [Right Radial Artery] Blood Pressure Position Sitting Blood Pressure Position [Right Radial Artery] 02 Sat by Pulse Oximetry 99 Oxygen Delivery Method Room Air - Lab Data Lab Results 08/05/21 16:50: WBC 10.8, RBC 2.99 L, Hgb 9.4 L D, Hct 29.0 L, MCV 97.2, MCH 31.0, MCHC 31.9, RDW 14.0, Plt Count 203, MPV 10.4, Neut % (Auto) 78.7, Lymph % (Auto) 15.6, [place] % (Auto) 4.6, Eos % (Auto) 0.9, Baso % (Auto) 0.3, Neut # (Auto) 8.5 H, Lymph # (Auto) 1.7, [place] # (Auto) 0.5, Eos # (Auto) 0.1, Baso # (Auto) 0.0 08/05/21 16:50: PT 19.6 H, INR 1.81 H 08/05/21 16:50: Sodium 137, Potassium 4.1, Chloride 108 H, Carbon Dioxide 27, Anion Gap 6.1, BUN 20 H, Creatinine 0.70, Estimated Creat Clear 39, Estimated GFR 82, Est GFR ( Amer) 99, Glucose 99, Calcium 8.3 L, Total Bilirubin 1.0, AST 46 H D, ALT 42, Alkaline Phosphatase 66, Total Protein 5.8 L, Albumin 3.3 L D, Globulin 2.5, Albumin/Globulin Ratio 1.3 08/05/21 16:50: Stool Occult Blood Positive A 08/05/21 16:50: Urine Color Yellow, Urine Appearance Clear, Urine pH 6.5, Ur Specific [place] 1.015, Urine Protein 3+, Urine Glucose (UA) Trace, Urine Ketones 1+, Urine Blood 3+, Urine Nitrate Positive, Urine Bilirubin 3+ A, Urine Urobilinogen >=8.0, Ur Leukocyte Esterase 2+ A, Urine RBC Tntc, Urine WBC 5-10, Ur Squamous Epith Cells None, Urine Bacteria 1+ 08/05/21 16:50: Blood Type Confirm O Negative 08/05/21 18:30: SARS-CoV-2 (PCR) Not detected, Influenza A Untype (PCR) Not detected, Influenza Type B (PCR) Not detected 08/05/21 18:40: Blood Type O Negative Result diagrams: 08/05/21 16:50 08/05/21 16:50 Orders (Tests/Meds): ED MEDICATIONS Discontinued Medications Generic Name Dose Route Start Last Admin Trade Name Freq PRN Reason Stop Dose Admin Phytonadione 5 mg/ Sodium 50.5 mls @ 100 mls/hr 02/10/22 17:41
--- NOTE | 2021-08-05 16:54 | XR_ITS ---
PROCEDURE INFORMATION: Exam: XR Left Knee Exam date and time: 08/05/2021 4:54 PM Age: 75 years old Clinical indication: Pain; Knee; Left; Additional info: Bruised, painful TECHNIQUE: Imaging protocol: XR Left knee. Views: 3 views. COMPARISON: No relevant prior studies available. FINDINGS: Bones/joints: No acute fracture or dislocation. Tiny superior patellar spur. Normal bone mineralization. Soft tissues: No soft tissue swelling or effusion. IMPRESSION: No acute findings.
--- NOTE | 2021-08-05 16:56 | PC.NURSE ---
Dr Naylor speaking with [facility]
--- NOTE | 2021-08-05 17:12 | XR_ITS ---
PROCEDURE INFORMATION: Exam: XR Chest Exam date and time: 08/05/2021 5:12 PM Age: 75 years old Clinical indication: Other: Weakness TECHNIQUE: Imaging protocol: XR of the chest. Views: 1 view. COMPARISON: CR XR CHEST 2V 06/23/2021 4:23 PM FINDINGS: Lungs: Unremarkable. No consolidation. Pleural spaces: Unremarkable. No pleural effusion. No pneumothorax. Heart/Mediastinum: Unremarkable. No cardiomegaly. Bones/joints: Unremarkable. IMPRESSION: No acute findings.
[2021-08-05 17:15] LABS: Basophils % 0.3 % (0.1-2.0); Eosinophils # 0.1 K/mm3 (0.0-0.4); Eosinophils % 0.9 % (0.1-12.0); Lymphocytes # 1.7 K/mm3 (0.7-4.5); Lymphocytes % 15.6 % (10-50); Mean Corpuscular HGB Conc 31.9 g/dL (31.8-35.4); Mean Corpuscular Volume 97.2 fl (81-99); Mean Platelet Volume 10.4 fl (7.4-10.4); Monocytes # 0.5 K/mm3 (0.1-1.0); Monocytes % 4.6 % (1.7-9.3); Neutrophils # 8.5 K/mm3 (1.8-7.8); Neutrophils % 78.7 % (37.0-80.0); Platelet Count 203 K/mm3 (142-424); Red Blood Count 2.99 M/mm3 (4.20-5.40); White Blood Count 10.8 K/mm3 (4.8-10.8)
--- NOTE | 2021-08-05 17:16 | PC.NURSE ---
[facility] to return call with neuro
[2021-08-05 17:17] LABS: Occult Blood,Stool Positive (Negative)
[2021-08-05 17:21] LABS: Alanine Aminotransferase 42 U/L (12-78); Albumin Level 3.3 g/dl (3.5-5.0); Albumin/Globulin Ratio 1.3 (1.1-1.8); Alkaline Phosphatase 66 U/L (38-126); Anion Gap 6.1 mEq/L (5-15); Aspartate Amino Transferase 46 U/L (14-36); Blood Urea Nitrogen 20 mg/dl (7-17); Calcium 8.3 mg/dl (8.4-10.2); Carbon Dioxide 27 mmol/L (22.0-30.0); Chloride 108 mmol/L (98-107); Creatinine Clearance Estimated 39 mL/min (50-200); Estimated Glomerular Filt Rate 82 ml/min (>60); GFR (African American) 99 ML/MIN (>60); Globulin 2.5 g/dL (1.3-3.2); Glucose 99 mg/dl (74-100); Potassium 4.1 mmoL/L (3.5-5.1); Sodium 137 mmol/L (136-145); Total Protein,Serum 5.8 g/dl (6.3-8.2)
--- NOTE | 2021-08-05 17:21 | PC.NURSE ---
Dr Naylor speaking with [facility] Dr Hayden.
[2021-08-05 17:22] LABS: INR 1.81 (0.9-1.1); Prothrombin Time 19.6 seconds (10.1-12.5)
--- NOTE | 2021-08-05 17:25 | PC.NURSE ---
Pt's family updated on POC
[2021-08-05 17:26] LABS: Hemoglobin 9.4 g/dL (12.2-16.2)
--- NOTE | 2021-08-05 18:10 | ECG_ITS ---
APPROVED REPORT Exam: Resting ECG HR:80 bpm ECG Measurements Heart Rate 80 AXES LA 148 P 91 QRSd 82 QRS 86 QT 352 T 92 QTc 388 Conclusion SINUS RHYTHM LOW QRS VOLTAGE IN PRECORDIAL LEADS [QRS DEFLECTION < 1.0 mV IN CHEST LEADS] BORDERLINE ECG UNCONFIRMED REPORT Electronically signed by : Bismark Kaur MD 08/05/2021 18:58:27
--- NOTE | 2021-08-05 18:24 | PC.NURSE ---
[facility], Calling [facility] at this time.
--- NOTE | 2021-08-05 18:28 | PC.NURSE ---
Dr Jann Moreno to return call from [facility]
[2021-08-05 18:31] LABS: Microscopic, Urine URINE MICROSCOPIC (MICROSCOPIC)
--- NOTE | 2021-08-05 18:31 | PC.NURSE ---
speaking with Dr Tejeda, MDs at this time.
[2021-08-05 18:46] LABS: Appearance,Urine CLEAR (Clear); Blood, Urine 3+ (Negative); Color,Urine YELLOW (Yellow); Glucose,Urine (UA) TRACE (Negative); Ketones,Urine 1+ (Negative); Leukocyte Esterase,Urine 2+ (Negative); Nitrate,Urine POSITIVE (Negative); PH,Urine 6.5 (5.0-8.5); Protein,Urine 3+ (Negative); Specific Gravity, Urine 1.015 (1.005-1.030); Urobilinogen,Urine >=8.0 EU/dl (0.2)
[2021-08-05 18:50] LABS: Coronavirus 19, PCR Not Detected (NotDetected); Influenza A, PCR Not Detected (NotDetected); Influenza B, PCR Not Detected (NotDetected)
--- NOTE | 2021-08-05 18:50 | PC.NURSE ---
Pt accepted by [facility] at bedside at this time to transport pt.
[2021-08-05 18:54] LABS: Bilirubin,Urine 3+ (Negative)
--- NOTE | 2021-08-05 19:09 | PC.NURSE ---
REPORT CALLED TO [facility]
[2021-08-05 19:35] LABS: RBC,Urine TNTC #/hpf (0-3)
[2021-08-05 19:37] LABS: Bacteria,Urine 1+ /lpf
== END 2021-08-05 19:10 | disposition short-term general hospital (02) ==
PROVIDERS: Emergency Provider Emergency Medicine; PCP Internal Medicine
DX: I62.01 Nontraumatic acute subdural hemorrhage (principal); N30.01 Acute cystitis with hematuria; B96.1 Klebsiella pneumoniae [K. pneumoniae] as the cause of diseases classified elsewhere; M25.562 Pain in left knee; R79.1 Abnormal coagulation profile; Z79.01 Long term (current) use of anticoagulants; Z79.899 Other long term (current) drug therapy
CPT/HCPCS: 70450; 71045; 73562; 80053; 81001; 82272; 85025; 85610; 86900; 86901; 93005; 96374; 99284; C9803; G0328; U0003; U0005

== ENCOUNTER → 2021-09-02 10:20 | Outpatient (CLI) | payer MEDICARE, OTHER, SELFPAY ==
[2021-09-02 10:59] LABS: Basophils # 0.1 K/mm3 (0-0.2); Basophils % 0.7 % (0.1-2.0); Eosinophils # 0.1 K/mm3 (0.0-0.4); Eosinophils % 1.6 % (0.1-12.0); Hemoglobin 10.1 g/dL (12.2-16.2); Lymphocytes # 1.3 K/mm3 (0.7-4.5); Lymphocytes % 17.2 % (10-50); Mean Corpuscular HGB Conc 30.5 g/dL (31.8-35.4); Mean Corpuscular Hemoglobin 30.9 pg (27.0-31.2); Mean Corpuscular Volume 101.3 fl (81-99); Mean Platelet Volume 10.4 fl (7.4-10.4); Monocytes # 0.3 K/mm3 (0.1-1.0); Monocytes % 4.5 % (1.7-9.3); Neutrophils # 5.7 K/mm3 (1.8-7.8); Neutrophils % 75.9 % (37.0-80.0); Platelet Count 348 K/mm3 (142-424); Red Blood Count 3.26 M/mm3 (4.20-5.40); Red Cell Distribution Width 15.1 % (11.5-17.5); White Blood Count 7.5 K/mm3 (4.8-10.8)
[2021-09-02 11:38] LABS: Blood Urea Nitrogen 16 mg/dl (7-17); Calcium 8.7 mg/dl (8.4-10.2); Carbon Dioxide 24 mmol/L (22.0-30.0); Chloride 114 mmol/L (98-107); Estimated Glomerular Filt Rate 70 ml/min (>60); GFR (African American) 85 ML/MIN (>60); Glucose 106 mg/dl (74-100); Sodium 143 mmol/L (136-145)
== END ==
PROVIDERS: Physical Medicine & Rehabilitation; PCP Internal Medicine
DX: S06.5X9A Traumatic subdural hemorrhage with loss of consciousness of unspecified duration, initial encounter (principal)
CPT/HCPCS: 36415; 80048; 85025

== ENCOUNTER 2021-09-06 12:55 | Outpatient (RCR) | payer MEDICARE, OTHER, SELFPAY ==
--- NOTE | 2021-09-07 11:24 | HMH.SLAPHASI ---
Speech & Language Evaluation Speech/Language Aphasia Evaluation Start: 09/07/21 11:20 Freq: once Status: Complete Protocol: Document 09/06/21 16:00 YOAV (Rec: 09/07/21 11:24 YOAV [id number]) Aphasia Assessment/Goals/Plan Assessment Date of Evaluation: 09/06/21 Evaluation Type Initial Certification Assessment/Problems Aphasia Does Patient Qualify for Service No Qualify/Failure Comment Patient is not displaying any overt signs of aphasia at this time. Plan Pt/Guardian verbally ack understanding Yes of dx/prognosis/goals G -code Required No Aphasia Evaluations Communication Speech Intelligibility Within functional limits Auditory Comprehension Yes: Word Level Sentences Following Directions Paragraph Conversation AC Comment All areas within functional limits. Reading Comprehension Yes: Letter Naming Word Naming Sentences Paragraphs RC Comment All areas within functional limits. Verbal Expressive Language Yes: Automatic Speech Completing Sentences Repetition Abilities Word Level Naming Naming Actions/Objects Sentence Level Defining Words YAW Comment All areas within functional limits. Written Language Yes: Signature Copy Shapes Copy Words Check Writing Sentence Writing WL Comment All areas within functional limits. Attending/Orientation/Memory Yes: Delayed Recall W/ Interference Orientation Attention/Concentration Memory AOM Comment All areas within functional limits. Congnitive/Linguistic Skills Yes: Thought Organization Categorization Similarities/Differences Sequencing CLS Comment All
== END 2021-09-06 12:59 | disposition home or self-care (01) ==
LOC: ST 12:55
PROVIDERS: PCP Internal Medicine; Visit Provider Physical Medicine & Rehabilitation
DX: S06.5X9A Traumatic subdural hemorrhage with loss of consciousness of unspecified duration, initial encounter (principal); R47.01 Aphasia
CPT/HCPCS: 92523

== ENCOUNTER → 2021-09-22 16:13 | Outpatient (CLI) | payer MEDICARE, OTHER, SELFPAY ==
[2021-09-22 16:31] LABS: Basophils # 0.1 K/mm3 (0-0.2); Basophils % 1.2 % (0.1-2.0); Eosinophils # 0.2 K/mm3 (0.0-0.4); Eosinophils % 3.5 % (0.1-12.0); Hematocrit 35.7 % (37.0-47.0); Hemoglobin 11.4 g/dL (12.2-16.2); Lymphocytes # 1.6 K/mm3 (0.7-4.5); Lymphocytes % 33.8 % (10-50); Mean Corpuscular HGB Conc 31.9 g/dL (31.8-35.4); Mean Corpuscular Hemoglobin 31.4 pg (27.0-31.2); Mean Corpuscular Volume 98.5 fl (81-99); Mean Platelet Volume 12.2 fl (7.4-10.4); Monocytes # 0.2 K/mm3 (0.1-1.0); Monocytes % 4.6 % (1.7-9.3); Neutrophils # 2.7 K/mm3 (1.8-7.8); Platelet Count 168 K/mm3 (142-424); Red Blood Count 3.63 M/mm3 (4.20-5.40); Red Cell Distribution Width 14.3 % (11.5-17.5); White Blood Count 4.7 K/mm3 (4.8-10.8)
== END ==
PROVIDERS: Visit Provider Internal Medicine
DX: D62 Acute posthemorrhagic anemia (principal); I82.413 Acute embolism and thrombosis of femoral vein, bilateral; T45.511D Poisoning by anticoagulants, accidental (unintentional), subsequent encounter; S06.5X9A Traumatic subdural hemorrhage with loss of consciousness of unspecified duration, initial encounter; K62.5 Hemorrhage of anus and rectum
CPT/HCPCS: 85025

== ENCOUNTER → 2021-10-04 10:05 | Outpatient (CLI) | payer MEDICARE, OTHER, SELFPAY ==
--- NOTE | 2021-10-04 | CA_ITS ---
FINAL REPORT TECHNIQUE: Bilateral extremity venous duplex was performed with augmentation and compression. CLINICAL HISTORY: F/u testing for pelvic and Left LE DVT. Recent Hx- extensive DVT with IVC filter. Pt D/c blood thinners 5 days ago. FINDINGS: Venous thrombosis is seen in the right common femoral vein, right superficial femoral vein, right popliteal vein and right peroneal vein. Proper flow is seen throughout the left lower extremity deep venous system. IMPRESSION: Right lower extremity DVT. No left lower extremity DVT. Reviewed, Interpreted and Dictated by Micah Pleitez MD Transcribed by Shannan Moran Authenticated by Micah Pleitez MD on 10/04/2021 01:03:46 PM [facility]
--- NOTE | 2021-10-04 10:08 | CT_ITS ---
FINAL REPORT TECHNIQUE: Axial CT images were performed through the head. Coronal reformatted images were submitted. This study was performed with techniques to keep radiation doses as low as reasonably achievable (ALARA). Individualized dose reduction techniques using automated exposure control or adjustment of mA and/or kV according to the patient's size were employed. CLINICAL HISTORY: FEDERICO-PAIN/EDEMA AND SUBDURAL HEMATOMA (F/U) COMPARISON: 08/05/2021 FINDINGS: The ventricles are normal in size. Previously noted right frontal and right parafalcine subdural hematomas have essentially resolved.. There is no mass or edema identified. There is no abnormal extra-axial fluid seen. The sinuses are well aerated. IMPRESSION: Interval resolution of previously seen subdural hematomas. Acute intracranial abnormality. Reviewed, Interpreted and Dictated by Micah Pleitez MD Transcribed by Shannan Moran Authenticated by Micah Pleitez MD on 10/04/2021 12:18:03 PM [facility]
== END ==
PROVIDERS: PCP Internal Medicine; Visit Provider Internal Medicine
DX: I82.413 Acute embolism and thrombosis of femoral vein, bilateral (principal); S06.5X9A Traumatic subdural hemorrhage with loss of consciousness of unspecified duration, initial encounter
CPT/HCPCS: 70450; 93970

== ENCOUNTER 2021-10-04 15:00 | Outpatient (RCR) | payer MEDICARE, OTHER, SELFPAY | END 2021-10-04 15:05 | disposition home or self-care (01) | LOC: PT 15:00 | PROVIDERS: PCP Internal Medicine; Visit Provider Physical Medicine & Rehabilitation | DX: S06.5X9A Traumatic subdural hemorrhage with loss of consciousness of unspecified duration, initial encounter (principal) | CPT/HCPCS: 97112; 97163; 97164; 97530 ==

== ENCOUNTER 2021-10-04 15:00 | Outpatient (RCR) | payer MEDICARE, OTHER, SELFPAY | END 2021-10-04 16:00 | disposition home or self-care (01) | LOC: OT 15:00 | PROVIDERS: PCP Internal Medicine; Visit Provider Physical Medicine & Rehabilitation | DX: S06.5X9A Traumatic subdural hemorrhage with loss of consciousness of unspecified duration, initial encounter (principal) | CPT/HCPCS: 97110; 97164; 97165; 97530 ==

== ENCOUNTER → 2021-10-08 11:43 | Outpatient (CLI) | payer MEDICARE, OTHER, SELFPAY ==
[2021-10-08 13:08] LABS: INR 0.98 (0.9-1.1); Prothrombin Time 11.1 seconds (10.1-12.5)
== END ==
PROVIDERS: Visit Provider Internal Medicine
DX: Z51.81 Encounter for therapeutic drug level monitoring (principal); Z79.01 Long term (current) use of anticoagulants; I48.91 Unspecified atrial fibrillation
CPT/HCPCS: 36415; 85610

== ENCOUNTER → 2021-10-15 11:22 | Outpatient (CLI) | payer MEDICARE, OTHER, SELFPAY ==
[2021-10-15 15:02] LABS: Chloride 116 mmol/L (98-107); Potassium 3.8 mmoL/L (3.5-5.1); Sodium 144 mmol/L (136-145)
[2021-10-15 15:05] LABS: Alanine Aminotransferase 29 U/L (12-78); Albumin Level 3.3 g/dl (3.5-5.0); Albumin/Globulin Ratio 1.3 (1.1-1.8); Alkaline Phosphatase 64 U/L (38-126); Anion Gap 7.8 mEq/L (5-15); Aspartate Amino Transferase 34 U/L (14-36); Bilirubin,Total 0.3 mg/dl (0.2-1.3); Blood Urea Nitrogen 22 mg/dl (7-17); Carbon Dioxide 24 mmol/L (22.0-30.0); Estimated Glomerular Filt Rate 61 ml/min (>60); GFR (African American) 74 ML/MIN (>60); Globulin 2.5 g/dL (1.3-3.2); Total Protein,Serum 5.8 g/dl (6.3-8.2)
[2021-10-15 15:06] LABS: Calcium 8.5 mg/dl (8.4-10.2); Glucose 80 mg/dl (74-100)
[2021-10-15 15:43] LABS: INR 1.88 (0.9-1.1); Prothrombin Time 20.3 seconds (10.1-12.5)
== END ==
PROVIDERS: Visit Provider Internal Medicine
DX: I82.403 Acute embolism and thrombosis of unspecified deep veins of lower extremity, bilateral (principal)
CPT/HCPCS: 36415; 80053; 85610

== ENCOUNTER → 2021-10-19 14:20 | Outpatient (CLI) | payer MEDICARE, OTHER, SELFPAY ==
[2021-10-19 14:51] LABS: INR 2.78 (0.9-1.1); Prothrombin Time 29.1 seconds (10.1-12.5)
== END ==
PROVIDERS: Visit Provider Internal Medicine
DX: I82.403 Acute embolism and thrombosis of unspecified deep veins of lower extremity, bilateral (principal)
CPT/HCPCS: 36415; 85610

== ENCOUNTER → 2021-10-26 16:01 | Outpatient (CLI) | payer MEDICARE, OTHER, SELFPAY ==
[2021-10-26 16:53] LABS: INR 2.57 (0.9-1.1); Prothrombin Time 27.1 seconds (10.1-12.5)
== END ==
PROVIDERS: PCP Internal Medicine; Visit Provider Internal Medicine
DX: Z51.81 Encounter for therapeutic drug level monitoring (principal); Z79.01 Long term (current) use of anticoagulants; I82.401 Acute embolism and thrombosis of unspecified deep veins of right lower extremity
CPT/HCPCS: 36415; 85610

== ENCOUNTER → 2021-11-02 15:08 | Outpatient (CLI) | payer MEDICARE, OTHER, SELFPAY ==
[2021-11-02 15:35] LABS: INR 2.21 (0.9-1.1); Prothrombin Time 23.5 seconds (10.1-12.5)
== END ==
PROVIDERS: PCP Internal Medicine; Visit Provider Internal Medicine
DX: I82.413 Acute embolism and thrombosis of femoral vein, bilateral (principal)
CPT/HCPCS: 85610

== ENCOUNTER → 2021-11-16 17:07 | Outpatient (CLI) | payer MEDICARE, OTHER, SELFPAY ==
[2021-11-16 20:08] LABS: INR 2.32 (0.9-1.1); Prothrombin Time 24.6 seconds (10.1-12.5)
== END ==
PROVIDERS: PCP Internal Medicine; Visit Provider Internal Medicine
DX: I82.413 Acute embolism and thrombosis of femoral vein, bilateral (principal)
CPT/HCPCS: 85610

== ENCOUNTER → 2021-12-01 16:39 | Outpatient (CLI) | payer MEDICARE, OTHER, SELFPAY ==
[2021-12-01 17:35] LABS: Prothrombin Time 21.5 seconds (10.1-12.5)
== END ==
PROVIDERS: Visit Provider Internal Medicine
DX: I82.413 Acute embolism and thrombosis of femoral vein, bilateral (principal)
CPT/HCPCS: 85610

== ENCOUNTER → 2021-12-01 17:12 | Outpatient (CLI) | payer MEDICARE, OTHER, SELFPAY | PROVIDERS: PCP Internal Medicine; Visit Provider Internal Medicine | DX: I82.413 Acute embolism and thrombosis of femoral vein, bilateral (principal) ==

== ENCOUNTER → 2022-01-06 14:54 | Outpatient (CLI) | payer MEDICARE, OTHER, SELFPAY ==
[2022-01-06 15:53] LABS: INR 2.33 (0.9-1.1); Prothrombin Time 24.7 seconds (10.1-12.5)
== END ==
PROVIDERS: PCP Internal Medicine; Visit Provider Internal Medicine
DX: I82.401 Acute embolism and thrombosis of unspecified deep veins of right lower extremity (principal); Z51.81 Encounter for therapeutic drug level monitoring; Z79.01 Long term (current) use of anticoagulants
CPT/HCPCS: 36415; 85610

== ENCOUNTER → 2022-01-26 16:54 | Outpatient (CLI) | payer MEDICARE, OTHER, SELFPAY ==
[2022-01-26 17:29] LABS: Basophils # 0.1 K/mm3 (0-0.2); Basophils % 0.7 % (0.1-2.0); Eosinophils # 0.4 K/mm3 (0.0-0.4); Eosinophils % 4.8 % (0.1-12.0); Hematocrit 38.7 % (37.0-47.0); Hemoglobin 12.3 g/dL (12.2-16.2); Lymphocytes # 1.4 K/mm3 (0.7-4.5); Lymphocytes % 18.1 % (10-50); Mean Corpuscular HGB Conc 31.9 g/dL (31.8-35.4); Mean Corpuscular Hemoglobin 31.2 pg (27.0-31.2); Mean Corpuscular Volume 97.6 fl (81-99); Monocytes # 0.4 K/mm3 (0.1-1.0); Monocytes % 5.7 % (1.7-9.3); Neutrophils # 5.3 K/mm3 (1.8-7.8); Neutrophils % 70.7 % (37.0-80.0); Platelet Count 195 K/mm3 (142-424); Red Blood Count 3.96 M/mm3 (4.20-5.40); Red Cell Distribution Width 13.9 % (11.5-17.5); White Blood Count 7.5 K/mm3 (4.8-10.8)
[2022-01-26 17:36] LABS: INR 2.11 (0.9-1.1); Prothrombin Time 22.6 seconds (10.1-12.5)
[2022-01-26 19:30] LABS: Alanine Aminotransferase 74 U/L (12-78); Albumin Level 3.6 g/dl (3.5-5.0); Albumin/Globulin Ratio 1.5 (1.1-1.8); Alkaline Phosphatase 96 U/L (38-126); Amylase 76 U/L (30-110); Anion Gap 11.3 mEq/L (5-15); Aspartate Amino Transferase 56 U/L (14-36); Blood Urea Nitrogen 19 mg/dl (7-17); Calcium 8.9 mg/dl (8.4-10.2); Carbon Dioxide 23 mmol/L (22.0-30.0); Chloride 112 mmol/L (98-107); Estimated Glomerular Filt Rate 70 ml/min (>60); GFR (African American) 84 ML/MIN (>60); Globulin 2.4 g/dL (1.3-3.2); Glucose 97 mg/dl (74-100); Potassium 4.3 mmoL/L (3.5-5.1); Sodium 142 mmol/L (136-145)
[2022-01-26 19:53] LABS: Bilirubin,Total < 0.1 mg/dl (0.2-1.3)
== END ==
PROVIDERS: PCP Internal Medicine; Visit Provider Internal Medicine
DX: R10.12 Left upper quadrant pain (principal); I82.413 Acute embolism and thrombosis of femoral vein, bilateral; I10 Essential (primary) hypertension; G40.909 Epilepsy, unspecified, not intractable, without status epilepticus; F41.9 Anxiety disorder, unspecified
CPT/HCPCS: 80053; 82150; 85025; 85610

== ENCOUNTER → 2022-02-04 07:41 | Outpatient (CLI) | payer MEDICARE, OTHER, SELFPAY ==
--- NOTE | 2022-02-04 07:50 | FL_ITS ---
FINAL REPORT CLINICAL HISTORY: LEFT UPPER QUAD. ABDOMINAL PAIN 1:51 fluoro time FINDINGS: UPPER GI EXAM HISTORY: Abdominal pain, left upper quadrant.. PROCEDURE: The patient ingested barium. Effervescent crystals were also administered. Spot and overhead films were obtained. FINDINGS: The esophagus is normal. There is no hiatal hernia. There is no gastroesophageal reflux. Peristalsis is normal. The patient is status post gastric bypass surgery. There appears to be inflammatory change of the proximal small bowel loops. There is no obstruction. FLUOROSCOPY TIME: 1.5 minutes IMPRESSION: Status post gastric bypass surgery with inflammatory change of the proximal small bowel loops. Findings may represent enteritis. Endoscopic correlation recommended. Reviewed, Interpreted and Dictated by Beny Fuller III, MD Transcribed by BROOKS Horner Authenticated and [facility]
--- NOTE | 2022-02-04 07:52 | US_ITS ---
FINAL REPORT TECHNIQUE: Ultrasound images through the abdomen were obtained. CLINICAL HISTORY: LEFT UPPER QUAD ABDOMINAL PAIN; history of cholecystectomy FINDINGS: The visualized solid abdominal organs are unremarkable. The pancreas is obscured by overlying bowel gas. The gallbladder absent. Common duct measures 4 mm. Spleen is unremarkable. The visualized portions of the aorta and the IVC are normal. IMPRESSION: Unremarkable ultrasound of the abdomen. Reviewed, Interpreted and Dictated by Beny Fuller III, MD Transcribed by Shannan Moran Authenticated and [facility]
== END ==
PROVIDERS: PCP Internal Medicine; Visit Provider Internal Medicine
DX: R10.12 Left upper quadrant pain (principal)
CPT/HCPCS: 74246; 76700

== ENCOUNTER → 2022-03-02 10:17 | Outpatient (CLI) | payer MEDICARE, OTHER, SELFPAY ==
[2022-03-02 11:06] LABS: INR 2.17 (0.9-1.1); Prothrombin Time 22.4 seconds (10.1-12.5)
[2022-03-02 11:12] LABS: Blood Urea Nitrogen 22 mg/dl (7-17); Estimated Glomerular Filt Rate 70 ml/min (>60); GFR (African American) 84 ML/MIN (>60)
== END ==
PROVIDERS: PCP Internal Medicine; Visit Provider Surgery
DX: Z51.81 Encounter for therapeutic drug level monitoring (principal); Z79.01 Long term (current) use of anticoagulants; I82.413 Acute embolism and thrombosis of femoral vein, bilateral
CPT/HCPCS: 36415; 82565; 84520; 85610

== ENCOUNTER 2022-03-06 10:01 | Emergency (ER) | payer MEDICARE, OTHER, SELFPAY ==
[2022-03-06 10:20] VITALS: BP 114/60; PULSE 62; RESP 18; TEMP 36.8; O2SAT 98; BMI 23.0
--- NOTE | 2022-03-06 10:29 | EXP.UTC ---
Discharge Plan Disposition Patient Disposition: Home, Self-Care Condition: Good Prescriptions Prescriptions: New benzonatate [benzonatate] 100 mg capsule 100 mg PO TIDP PRN (Reason: Cough) Qty: 30 0RF ondansetron 4 mg Tablet,Disintegrating 4 mg PO Q8H PRN (Reason: Nausea) Qty: 20 0RF No Action lorazepam 0.5 mg tablet 0.5 mg PO warfarin 2.5 mg tablet 2.5 mg PO levetiracetam 500 mg tablet PO ascorbic acid (vitamin C) 250 mg tablet 250 mg PO DAILY cholecalciferol (vitamin D3) 125 mcg (5,000 unit) capsule 125 mcg PO DAILY latanoprost 0.005 % drops OPHTHALMIC Simbrinza 1-0.2 % drops,suspension 1 drp OPHTHALMIC ONCE ferrous sulfate 325 MG tablet 325 mg PO DAILY Referrals Follow up/Referrals: Timi Wen MD [Primary Care Provider] - See instructions Activity Restrictions/Add. Instructions Additional Instructions/Restrictions: Drink plenty of fluids. Take tylenol or ibuprofen for pain or fever. Take the medications as directed. Follow up with your regular doctor. GO TO THE ER FOR ANY WORSENING SYMPTOMS Quarantine until you know the results of your covid-19 test. Notify your school or workplace of your results and follow their instructions regarding return to work/school. Clinical Impressions Clinical Impression: Acute viral syndrome Stand Alone Forms Stand Alone Forms: Work/School Release Instructions Patient Instructions: Coronavirus Disease 2019, Preventing the Spread of Coronavirus Discharge Instructions Discharge ED Provider: Chepe Quiroz [facility] General Stated complaint: fever, h/a, chills Time Seen by Provider: 03/06/22 10:29 History of Present Illness Provider Complaint: She states that for the past 2 days she has had chills, body aches and malaise. She denies fever. 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 Related Data Home Medications Medication Instructions Recorded Confirmed ferrous sulfate 325 mg (65 mg 325 mg PO DAILY Supplement 12/15/19 03/02/22 iron) tablet ascorbic acid (vitamin C) 250 mg 250 mg PO DAILY 09/16/21 03/02/22 tablet brinzolamide 1 %-brimonidine 0.2 % 1 drp ophthalmic (eye) ONCE 09/16/21 03/02/22 eye drops,suspension (Simbrinza) cholecalciferol (vitamin D3) 125 125 mcg PO DAILY 09/16/21 03/02/22 mcg (5,000 unit) capsule latanoprost 0.005 % eye drops ml ophthalmic (eye) 09/16/21 03/02/22 levetiracetam 500 mg tablet tab PO 09/16/21 03/02/22 lorazepam 0.5 mg tablet 0.5 mg PO 03/02/22 03/02/22 warfarin 2.5 mg tablet 2.5 mg PO 03/02/22 03/02/22 Previous Rx's Medication Instructions Recorded benzonatate 100 mg capsule 100 mg PO TIDP PRN Cough #30 caps 03/06/22 ondansetron 4 mg disintegrating 4 mg PO Q8H PRN Nausea #20 tabs 03/06/22 tablet Allergies Allergy/AdvReac Type Severity Reaction Status Date / Time oxaprozin Allergy Intermediate I-RASH Verified 03/02/22 09:21 PFSH PFS Medical History History of anemia History of gastroesophageal reflux (GERD) Kidney stone Seizure disorder Surgical History H/O gastric bypass History of cholecystectomy History of hysterectomy History of laparoscopic cholecystectomy S/P carpal tunnel release Social History Smoking Status: Never smoker alcohol intake: never current occupational status: employed Travel in the last 8 weeks: None ROS Obtained: Yes All systems reviewed & no additional complaints except as documented Constitutional Constitutional: Reports system reviewed and no additional complaints, except as documented, Denies chills and Denies fever(s) Eyes Eyes: Denies eye discharge ENT Ears, Nose, Mouth, and Throat: Denies dysphagia, Denies sore throat and Denies throat swelling Cardiovascular [facility]
[2022-03-06 10:34] VITALS: BP 114/60; PULSE 62; RESP 18; TEMP 36.8; O2SAT 98
[2022-03-06 11:11] LABS: Adenovirus,PCR Not Detected (NotDetected); Bordetella Pertussis Not Detected (NotDetected); Chlamydophila Pneumoniae, PCR Not Detected (NotDetected); Coronavirus 229E Not Detected (NotDetected); Coronavirus NL63 Not Detected (NotDetected); Coronavirus OC43 Not Detected (NotDetected); Coronovirus HKU1,PCR Not Detected (NotDetected); Human Metapneumovirus Not Detected (NotDetected); Influenza A, PCR Not Detected (NotDetected); Influenza AH1, 2009 Not Detected (NotDetected); Influenza AH1, PCR Not Detected (NotDetected); Influenza AH3,PCR Not Detected (NotDetected); Influenza B, PCR Not Detected (NotDetected); Mycoplasma Pneumoniae, PCR Not Detected (NotDetected); Parainfluenza 1, PCR Not Detected (NotDetected); Parainfluenza 2, PCR Not Detected (NotDetected); Parainfluenza 3, PCR Not Detected (NotDetected); Parainfluenza 4, PCR Not Detected (NotDetected); Respiratory Syncytial Virus Not Detected (NotDetected); Rhinovirus/Enterovirus Not Detected (NotDetected)
[2022-03-06 13:36] LABS: Coronavirus 19, PCR Detected (NotDetected)
== END 2022-03-06 11:12 | disposition home or self-care (01) ==
PROVIDERS: Emergency Provider Nurse Practitioner Family; PCP Internal Medicine
DX: U07.1 COVID-19 (principal); R68.83 Chills (without fever); R53.81 Other malaise
CPT/HCPCS: 87581; 87632; 87798; 99212; C9803; G0463; U0003; U0005

== ENCOUNTER → 2022-03-09 16:33 | Outpatient (CLI) | payer MEDICARE, OTHER, SELFPAY ==
[2022-03-09 17:47] LABS: INR 1.88 (0.9-1.1); Prothrombin Time 19.6 seconds (10.1-12.5)
== END ==
PROVIDERS: PCP Internal Medicine; Visit Provider Internal Medicine
DX: Z51.81 Encounter for therapeutic drug level monitoring (principal); Z79.01 Long term (current) use of anticoagulants
CPT/HCPCS: 36415; 85610

== ENCOUNTER → 2022-03-19 10:45 | Outpatient (CLI) | payer MEDICARE, OTHER, SELFPAY ==
[2022-03-19 11:48] LABS: INR 2.44 (0.9-1.1); Prothrombin Time 25.1 seconds (10.1-12.5)
== END ==
PROVIDERS: PCP Internal Medicine; Visit Provider Internal Medicine
DX: Z51.81 Encounter for therapeutic drug level monitoring (principal); Z79.01 Long term (current) use of anticoagulants
CPT/HCPCS: 36415; 85610

== ENCOUNTER → 2022-04-02 11:15 | Outpatient (CLI) | payer MEDICARE, OTHER, SELFPAY ==
[2022-04-02 13:31] LABS: INR 3.75 (0.9-1.1); Prothrombin Time 37.6 seconds (10.1-12.5)
== END ==
PROVIDERS: PCP Internal Medicine; Visit Provider Internal Medicine
DX: I82.403 Acute embolism and thrombosis of unspecified deep veins of lower extremity, bilateral (principal); D68.62 Lupus anticoagulant syndrome; Z78.9 Other specified health status
CPT/HCPCS: 36415; 85610

== ENCOUNTER → 2022-04-15 16:53 | Outpatient (CLI) | payer MEDICARE, OTHER, SELFPAY ==
[2022-04-15 18:46] LABS: INR 2.98 (0.9-1.1); Prothrombin Time 30.3 seconds (10.1-12.5)
== END ==
PROVIDERS: PCP Internal Medicine; Visit Provider Internal Medicine
DX: Z51.81 Encounter for therapeutic drug level monitoring (principal); Z79.01 Long term (current) use of anticoagulants; I82.413 Acute embolism and thrombosis of femoral vein, bilateral
CPT/HCPCS: 85610

== ENCOUNTER → 2022-04-28 10:42 | Outpatient (CLI) | payer MEDICARE, OTHER, SELFPAY ==
[2022-04-28 11:45] LABS: INR 2.28 (0.9-1.1); Prothrombin Time 23.5 seconds (10.1-12.5)
== END ==
PROVIDERS: PCP Internal Medicine; Visit Provider Internal Medicine
DX: Z51.81 Encounter for therapeutic drug level monitoring (principal); Z79.01 Long term (current) use of anticoagulants; D68.62 Lupus anticoagulant syndrome; I82.402 Acute embolism and thrombosis of unspecified deep veins of left lower extremity; I82.401 Acute embolism and thrombosis of unspecified deep veins of right lower extremity
CPT/HCPCS: 36415; 85610

== ENCOUNTER → 2022-05-30 16:52 | Outpatient (CLI) | payer MEDICARE, OTHER, SELFPAY ==
[2022-05-30 17:18] LABS: INR 3.99 (0.9-1.1); Prothrombin Time 39.8 seconds (10.1-12.5)
== END ==
PROVIDERS: PCP Internal Medicine; Visit Provider Internal Medicine
DX: Z51.81 Encounter for therapeutic drug level monitoring (principal); Z79.01 Long term (current) use of anticoagulants
CPT/HCPCS: 85610

== ENCOUNTER → 2022-06-24 16:46 | Outpatient (CLI) | payer MEDICARE, OTHER, SELFPAY ==
[2022-06-24 17:32] LABS: INR 1.53 (0.9-1.1); Prothrombin Time 16.1 seconds (10.1-12.5)
== END ==
PROVIDERS: PCP Internal Medicine; Visit Provider Internal Medicine
DX: Z51.81 Encounter for therapeutic drug level monitoring (principal); Z79.01 Long term (current) use of anticoagulants; I82.402 Acute embolism and thrombosis of unspecified deep veins of left lower extremity
CPT/HCPCS: 36415; 85610

== ENCOUNTER → 2022-07-08 16:41 | Outpatient (CLI) | payer MEDICARE, OTHER, SELFPAY ==
[2022-07-08 17:21] LABS: INR 1.67 (0.9-1.1); Prothrombin Time 17.5 seconds (10.1-12.5)
== END ==
PROVIDERS: PCP Internal Medicine; Visit Provider Internal Medicine
DX: Z51.81 Encounter for therapeutic drug level monitoring (principal); Z79.01 Long term (current) use of anticoagulants
CPT/HCPCS: 85610

== ENCOUNTER → 2022-07-29 16:44 | Outpatient (CLI) | payer MEDICARE, OTHER, SELFPAY | PROVIDERS: PCP Internal Medicine; Visit Provider Internal Medicine | DX: Z51.81 Encounter for therapeutic drug level monitoring (principal); Z79.01 Long term (current) use of anticoagulants ==

== ENCOUNTER → 2022-08-01 15:17 | Outpatient (CLI) | payer MEDICARE, OTHER, SELFPAY ==
[2022-08-01 15:58] LABS: INR 5.27 (0.9-1.1); Prothrombin Time 51.8 seconds (10.1-12.5)
== END ==
PROVIDERS: PCP Internal Medicine; Visit Provider Internal Medicine
DX: Z51.81 Encounter for therapeutic drug level monitoring (principal); Z79.01 Long term (current) use of anticoagulants; I82.503 Chronic embolism and thrombosis of unspecified deep veins of lower extremity, bilateral
CPT/HCPCS: 85610

== ENCOUNTER → 2022-08-03 16:35 | Outpatient (CLI) | payer MEDICARE, OTHER, SELFPAY ==
[2022-08-03 17:34] LABS: INR 4.97 (0.9-1.1)
== END ==
PROVIDERS: PCP Internal Medicine; Visit Provider Internal Medicine
DX: Z51.81 Encounter for therapeutic drug level monitoring (principal); Z79.01 Long term (current) use of anticoagulants; I82.403 Acute embolism and thrombosis of unspecified deep veins of lower extremity, bilateral
CPT/HCPCS: 36415; 85610

== ENCOUNTER → 2022-08-08 16:20 | Outpatient (CLI) | payer MEDICARE, OTHER, SELFPAY ==
[2022-08-08 16:47] LABS: INR 1.56 (0.9-1.1); Prothrombin Time 16.4 seconds (10.1-12.5)
== END ==
PROVIDERS: PCP Internal Medicine; Visit Provider Internal Medicine
DX: Z51.81 Encounter for therapeutic drug level monitoring (principal); Z79.01 Long term (current) use of anticoagulants
CPT/HCPCS: 36415; 85610

== ENCOUNTER → 2022-08-15 16:26 | Outpatient (CLI) | payer MEDICARE, OTHER, SELFPAY ==
[2022-08-15 17:37] LABS: INR 2.98 (0.9-1.1); Prothrombin Time 30.3 seconds (10.1-12.5)
== END ==
PROVIDERS: PCP Internal Medicine; Visit Provider Internal Medicine
DX: Z51.81 Encounter for therapeutic drug level monitoring (principal); Z79.01 Long term (current) use of anticoagulants
CPT/HCPCS: 36415; 85610

== ENCOUNTER → 2022-08-23 16:39 | Outpatient (CLI) | payer MEDICARE, OTHER, SELFPAY ==
[2022-08-23 17:20] LABS: INR 2.84 (0.9-1.1); Prothrombin Time 28.9 seconds (10.1-12.5)
== END ==
PROVIDERS: PCP Internal Medicine; Visit Provider Internal Medicine
DX: Z51.81 Encounter for therapeutic drug level monitoring (principal); Z79.01 Long term (current) use of anticoagulants; I82.503 Chronic embolism and thrombosis of unspecified deep veins of lower extremity, bilateral
CPT/HCPCS: 85610

== ENCOUNTER → 2022-09-09 16:15 | Outpatient (CLI) | payer MEDICARE, OTHER, SELFPAY ==
[2022-09-09 17:04] LABS: INR 1.74 (0.9-1.1); Prothrombin Time 18.2 seconds (10.1-12.5)
== END ==
PROVIDERS: PCP Internal Medicine; Visit Provider Internal Medicine
DX: I82.503 Chronic embolism and thrombosis of unspecified deep veins of lower extremity, bilateral (principal); Z51.81 Encounter for therapeutic drug level monitoring; Z79.01 Long term (current) use of anticoagulants
CPT/HCPCS: 85610

== ENCOUNTER → 2022-09-15 16:31 | Outpatient (CLI) | payer MEDICARE, OTHER, SELFPAY ==
[2022-09-15 17:29] LABS: INR 2.42 (0.9-1.1); Prothrombin Time 24.9 seconds (10.1-12.5)
== END ==
PROVIDERS: PCP Internal Medicine; Visit Provider Internal Medicine
DX: R79.1 Abnormal coagulation profile (principal)
CPT/HCPCS: 36415; 85610

== ENCOUNTER → 2022-10-01 16:22 | Outpatient (CLI) | payer MEDICARE, OTHER, SELFPAY ==
[2022-10-01 17:11] LABS: Prothrombin Time 18.8 seconds (10.1-12.5)
== END ==
PROVIDERS: PCP Internal Medicine; Visit Provider Internal Medicine
DX: Z51.81 Encounter for therapeutic drug level monitoring (principal); Z79.01 Long term (current) use of anticoagulants; D68.62 Lupus anticoagulant syndrome
CPT/HCPCS: 36415; 85610

== ENCOUNTER → 2022-10-17 16:58 | Outpatient (CLI) | payer MEDICARE, OTHER, SELFPAY ==
[2022-10-17 17:38] LABS: INR 2.82 (0.9-1.1); Prothrombin Time 28.7 seconds (10.1-12.5)
== END ==
PROVIDERS: PCP Internal Medicine; Visit Provider Internal Medicine
DX: Z51.81 Encounter for therapeutic drug level monitoring (principal); Z79.01 Long term (current) use of anticoagulants
CPT/HCPCS: 85610

== ENCOUNTER 2022-11-04 14:03 | Emergency (ER) | payer MEDICARE, OTHER, SELFPAY ==
[2022-11-04] VITALS (8 sets, daily range): BP systolic 117–151; BP diastolic 59–69; PULSE 49–96; RESP 17–18; TEMP 36.9–37.1; O2SAT 96–100; BMI 20.3
--- NOTE | 2022-11-04 14:10 | XR_ITS ---
FINAL REPORT CLINICAL HISTORY: trauma, fall down stairs COMPARISON: None FINDINGS: LEFT ANKLE Three views demonstrate no acute fracture or dislocation. The visualized joint spaces are normally aligned. There is mild calcaneal spurring. The soft tissues are unremarkable. IMPRESSION: No acute process. Reviewed, Interpreted and Dictated by Zaida Ford MD Transcribed by My Torres Authenticated and [facility]
--- NOTE | 2022-11-04 14:10 | CT_ITS ---
FINAL REPORT TECHNIQUE: Pre-and postcontrast images of the abdomen were performed by computed tomography. Extensive 3-D reconstruction images were performed. A CTA was performed. This study was performed with techniques to keep radiation doses as low as reasonably achievable (ALARA). Individualized dose reduction techniques using automated exposure control or adjustment of mA and/or kV according to the patient''s size were employed. CLINICAL HISTORY: trauma, fall down stairs COMPARISON: None FINDINGS: ABDOMEN: Precontrast images demonstrate nonobstructing right renal stones. Remaining solid organs are normal. Gallbladder surgically absent. Bowel is unremarkable. No free air free fluid. IVC filter is present. PELVIS: No free fluid. Status post hysterectomy. CTA: The abdominal aorta demonstrates no evidence of dissection or posttraumatic change. The abdominal aorta is widely patent. There is high-grade stenosis of the celiac artery. Superior mesenteric and renal arteries are widely patent. WINNIE is widely patent. IMPRESSION: No acute findings. Nonobstructing right renal stones. High-grade celiac artery stenosis. Reviewed, Interpreted and Dictated by Zaida Ford MD Transcribed by My Torres Authenticated and [facility]
--- NOTE | 2022-11-04 14:10 | XR_ITS ---
FINAL REPORT CLINICAL HISTORY: trauma FINDINGS: Left femur Two views were obtained. There is no acute fracture or dislocation. The joint spaces appear normal. No soft tissue abnormality is identified. IMPRESSION: No acute process. Reviewed, Interpreted and Dictated by Zaida Ford MD Transcribed by Elana Abdi Authenticated and [facility]
--- NOTE | 2022-11-04 14:10 | XR_ITS ---
FINAL REPORT CLINICAL HISTORY: trauma, fall down stairs COMPARISON: None FINDINGS: Two views of the left knee were obtained. There are comminuted fractures of the proximal tibia and fibula. Tibial fracture extends into the tibial plateau laterally and probably medially. It is mildly displaced. There is a small joint effusion. IMPRESSION: Proximal tibial and fibular fractures. Consider CT follow-up. Reviewed, Interpreted and Dictated by Zaida Ford MD Transcribed by My Torres Authenticated and [facility]
--- NOTE | 2022-11-04 14:10 | CT_ITS ---
FINAL REPORT TECHNIQUE: Axial images through the pelvis were performed by computed tomography. Sagittal and coronal reconstruction images were performed. This study was performed with techniques to keep radiation doses as low as reasonably achievable (ALARA). Individualized dose reduction techniques using automated exposure control or adjustment of mA and/or kV according to the patient's size were employed. CLINICAL HISTORY: trauma, fall down stairs COMPARISON: None FINDINGS: No fracture. Degenerative changes of bilateral SI joints and hip joints. IMPRESSION: Degenerative changes without acute bony abnormality. Reviewed, Interpreted and Dictated by Zaida Ford MD Transcribed by My Torres Authenticated and [facility]
--- NOTE | 2022-11-04 14:10 | CT_ITS ---
FINAL REPORT TECHNIQUE: Axial images were performed through the lumbar spine by computed tomography. Sagittal reconstruction images were also performed. This study was performed with techniques to keep radiation doses as low as reasonably achievable, (ALARA). Individualized dose reduction techniques using automated exposure control or adjustment of mA and/or kV according to the patient''s size were employed. CLINICAL HISTORY: trauma FINDINGS: There is 11 mm of anterolisthesis of L4 on 5. Patient is status post fusion of L4-5. There is advanced diffuse degenerative disc disease. No fracture is identified. There is multilevel canal stenosis, most pronounced at L2-3 and L4-5. Note is made of right nephrolithiasis. IMPRESSION: No fracture identified. Advanced degenerative change and postoperative change. Chronic appearing subluxation of L4-5. Reviewed, Interpreted and Dictated by Zaida Ford MD Transcribed by Elana Abdi Authenticated and [facility]
--- NOTE | 2022-11-04 14:10 | XR_ITS ---
FINAL REPORT CLINICAL HISTORY: trauma, fall downstairs COMPARISON: None FINDINGS: Three views of the left tibia/fibula were obtained. There are comminuted proximal tibial and fibular fractures with mild displacement. Tibial fracture extends into the knee joint. Ankle mortise is intact. IMPRESSION: Proximal tibial and fibular fractures. Reviewed, Interpreted and Dictated by Zaida Ford MD Transcribed by My Torres Authenticated and [facility]
--- NOTE | 2022-11-04 14:10 | XR_ITS ---
FINAL REPORT CLINICAL HISTORY: trauma, fall down stairs COMPARISON: None FINDINGS: LEFT HIP: Three views of the left hip with an AP view of the pelvis demonstrate no acute fracture or dislocation. The joint spaces appear normal. The visualized bony structures are well aligned. No soft tissue abnormality is seen. IMPRESSION: No acute bony abnormality. Reviewed, Interpreted and Dictated by Zaida Ford MD Transcribed by My Torres Authenticated and [facility]
--- NOTE | 2022-11-04 14:10 | CT_ITS ---
FINAL REPORT TECHNIQUE: Axial images through the thoracic spine were performed. Sagittal reconstruction images were performed. This study was performed with techniques to keep radiation doses as low as reasonably achievable, (ALARA). Individualized dose reduction techniques using automated exposure control or adjustment of mA and/or kV according to the patient's size were employed. CLINICAL HISTORY: trauma FINDINGS: No subluxation or fracture identified. There is mild diffuse degenerative disc disease. IMPRESSION: No acute process. Reviewed, Interpreted and Dictated by Zaida Ford MD Transcribed by Elana Abdi Authenticated and [facility]
--- NOTE | 2022-11-04 14:10 | CT_ITS ---
FINAL REPORT TECHNIQUE: Thin section axial CT with contrast with multiplanar reconstruction CLINICAL HISTORY: trauma, fall down stairs COMPARISON: None FINDINGS: Pulmonary vessels enhance in normal fashion without evidence of embolism. Thoracic aorta shows no dissection or aneurysm. No pulmonary mass or infiltrate is present. There is no significant pleural effusion. There is no significant pericardial effusion. No mediastinal or hilar adenopathy is present. No obvious rib fracture. IMPRESSION: No evidence of pulmonary embolism. Reviewed, Interpreted and Dictated by Zaida Ford MD Transcribed by My Torres Authenticated and [facility]
--- NOTE | 2022-11-04 14:12 | CT_ITS ---
FINAL REPORT TECHNIQUE: Noncontrast exam CLINICAL HISTORY: trauma-- fell down steps COMPARISON: 10/04/2021 FINDINGS: No abnormal density is seen. Ventricles are normal. There is no hemorrhage. No mass effect is seen. Bone windows show no evidence of fracture. IMPRESSION: No acute findings Reviewed, Interpreted and Dictated by Zaida Ford MD Transcribed by My Torres Authenticated and [facility]
--- NOTE | 2022-11-04 14:12 | CT_ITS ---
FINAL REPORT TECHNIQUE: Thin section axial CT with sagittal reconstruction without contrast CLINICAL HISTORY: trauma-- fell down steps COMPARISON: None FINDINGS: No fracture is seen. There are postoperative changes from laminectomy of C3 through C7. Severe spondylosis and degenerative disc disease. No malalignment. IMPRESSION: No fracture or malalignment. Severe degenerative changes and postoperative changes. Reviewed, Interpreted and Dictated by Zaida Ford MD Transcribed by My Torres Authenticated and [facility]
[2022-11-04 14:25] LABS: Basophils % 0.4 % (0.1-2.0); Chloride 104 mmol/L (98-107); Eosinophils # 0.2 K/mm3 (0.0-0.4); Hematocrit 38.5 % (37.0-47.0); Hemoglobin 12.6 g/dL (12.2-16.2); Mean Corpuscular HGB Conc 32.8 g/dL (31.8-35.4); Mean Corpuscular Hemoglobin 30.7 pg (27.0-31.2); Mean Corpuscular Volume 93.5 fl (81-99); Mean Platelet Volume 10.5 fl (7.4-10.4); Monocytes # 0.4 K/mm3 (0.1-1.0); Neutrophils # 5.1 K/mm3 (1.8-7.8); Neutrophils % 66.6 % (37.0-80.0); Platelet Count 188 K/mm3 (142-424); Potassium 3.8 mmoL/L (3.5-5.1); Red Blood Count 4.11 M/mm3 (4.20-5.40); Red Cell Distribution Width 13.3 % (11.5-17.5); Sodium 137 mmol/L (136-145); White Blood Count 7.7 K/mm3 (4.8-10.8)
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
[2022-11-04 14:28] LABS: Alanine Aminotransferase 50 U/L (12-78); Albumin Level 3.4 g/dl (3.5-5.0); Albumin/Globulin Ratio 1.4 (1.1-1.8); Alkaline Phosphatase 68 U/L (38-126); Anion Gap 14.8 mEq/L (5-15); Aspartate Amino Transferase 47 U/L (14-36); Bilirubin,Total 0.3 mg/dl (0.2-1.3); Blood Urea Nitrogen 22 mg/dl (7-17); Carbon Dioxide 22 mmol/L (22.0-30.0); Creatinine Clearance Estimated 39 mL/min (50-200); Estimated Glomerular Filt Rate 54 ml/min (>60); GFR (African American) 65 ML/MIN (>60); Globulin 2.4 g/dL (1.3-3.2); Total Protein,Serum 5.8 g/dl (6.3-8.2)
[2022-11-04 14:29] LABS: Calcium 8.8 mg/dl (8.4-10.2); Glucose 210 mg/dl (74-100)
[2022-11-04 14:31] LABS: INR 2.66 (0.9-1.1); Prothrombin Time 27.2 seconds (10.1-12.5)
--- NOTE | 2022-11-04 14:36 | PC.NURSE ---
PT GOING TO CT
--- NOTE | 2022-11-04 14:54 | PC.NURSE ---
pt stil at ct
--- NOTE | 2022-11-04 15:13 | PC.NURSE ---
pt still at ct
--- NOTE | 2022-11-04 15:15 | PC.NURSE ---
rounded on pt but still not back from ct scans...
--- NOTE | 2022-11-04 15:26 | PC.NURSE ---
Camilo brought bells down for us to put at bedside for the pt to ring out for assistance sing our call light system is down
--- NOTE | 2022-11-04 15:44 | PC.NURSE ---
pt arrived back to room
[2022-11-04 15:48] LABS: Coronavirus 19, PCR Not Detected (NotDetected); Influenza A, PCR Not Detected (NotDetected); Influenza B, PCR Not Detected (NotDetected)
--- NOTE | 2022-11-04 15:55 | PC.NURSE ---
PT C/O OF KNEE AND LOWER LEG PAIN , NEW MED ORDERS PLACED
[2022-11-04 16:27] LABS: Lactic Acid 3.6 mmol/L (0.7-2.1)
--- NOTE | 2022-11-04 16:58 | CT_ITS ---
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 Exam focused on the lower leg. Radiation optimization: All CT scans at this facility use at least one of these dose optimization techniques: automated exposure control; mA and/or kV adjustment per patient size (includes targeted exams where dose is matched to clinical indication); or iterative reconstruction. REPORTING DATA: Count of CT and Cardiac NM exams in prior 12 months: This patient has received 0 known CTs and 0 known cardiac nuclear medicine studies in the 12 months prior to the current study. COMPARISON: CR XR TIBIA FIBULA LT 2V 11/04/2022 2:53 PM FINDINGS: Bones/joints: Acute and comminuted intra-articular fractures proximal tibia involving medial and lateral tibial plateaus in the tibial spines with mild impaction. Adjacent mildly impacted fractures proximal neck and head of the fibula. Lipohemarthrosis. Soft tissues: Soft tissue swelling and infiltrative hemorrhage adjacent to the fractures most evident anteriorly. Vasculature: Moderate atherosclerosis. IMPRESSION: 1. Acute and comminuted intra-articular fractures proximal tibia involving medial and lateral tibial plateaus in the tibial spines with mild impaction. Adjacent mildly impacted fractures proximal neck and head of the fibula. 2. Lipohemarthrosis.
--- NOTE | 2022-11-04 16:58 | PC.NURSE ---
DAISY PHELPS speaking with Dr Magana
--- NOTE | 2022-11-04 17:03 | PC.NURSE ---
pt resting in bed , brett at bs
--- NOTE | 2022-11-04 18:23 | PC.NURSE ---
Dr Menendez speaking with Dr Magana
--- NOTE | 2022-11-04 19:22 | PC.NURSE ---
s/w Hospitalist for admission. supervisor sewing room was notified need for bed assignment.
--- NOTE | 2022-11-04 19:37 | PC.NURSE ---
MD at bedside for splint placement. However, the swelling to this limb was very large . MD used mathew to check for compartment syndrome, it was 21.
--- NOTE | 2022-11-04 19:38 | PC.NURSE ---
Dr. Menendez at BS
--- NOTE | 2022-11-04 19:40 | PC.NURSE ---
Dr. Magana pagejocelin
--- NOTE | 2022-11-04 19:40 | PC.NURSE ---
Dr. Menendez s/w Dr. Magana
--- NOTE | 2022-11-04 19:41 | PC.NURSE ---
s/w Dr. Magana who recommends the pt be transferred out. Calling [facility] now in attempt to transfer her there.
--- NOTE | 2022-11-04 19:50 | PC.NURSE ---
call placed to [facility] for pt transport for ortho due to compartment pressure of 21 percent. awaiting return call
[2022-11-04 19:56] LABS: Reflex Lactic Add Lactic Reflex
--- NOTE | 2022-11-04 20:05 | PC.NURSE ---
Dr. Menendez speaking with [facility]
--- NOTE | 2022-11-05 05:52 | PC.NURSE ---
[facility] NOTIFIED OF PATIENT COMPLAINT FROM TRIAGE NOTE AND TRANSFER TO [facility]. REPORT FILED PER [facility].
== END 2022-11-04 20:52 | disposition short-term general hospital (02) ==
LOC: ER 19:36 → 2ND 19:42
PROVIDERS: Emergency Provider Student in an Organized Health Care Education/Training Program; PCP Internal Medicine
DX: S82.102A Unspecified fracture of upper end of left tibia, initial encounter for closed fracture (principal); S82.832A Other fracture of upper and lower end of left fibula, initial encounter for closed fracture; Z79.02 Long term (current) use of antithrombotics/antiplatelets; W10.8XXA Fall (on) (from) other stairs and steps, initial encounter; Y00.XXXA Assault by blunt object, initial encounter
CPT/HCPCS: 29345; 36415; 70450; 71275; 72125; 72128; 72131; 72192; 73502; 73552; 73560; 73590; 73610; 73700; 74174; 80053; 83605; 85025; 85610; 86850; 87635; 87636; 96361; 96374; 96375; 96376; 99285; C9803; J2405; Q9967; U0003; U0005

== ENCOUNTER → 2023-03-01 16:59 | Outpatient (CLI) | payer MEDICARE, OTHER, SELFPAY ==
[2023-03-01 17:38] LABS: Basophils % 0.4 % (0.1-2.0); Eosinophils # 0.3 K/mm3 (0.0-0.4); Eosinophils % 3.9 % (0.1-12.0); Hematocrit 43.9 % (37.0-47.0); Lymphocytes # 1.8 K/mm3 (0.7-4.5); Lymphocytes % 27.6 % (10-50); Mean Corpuscular HGB Conc 31.8 g/dL (31.8-35.4); Mean Corpuscular Hemoglobin 29.9 pg (27.0-31.2); Mean Corpuscular Volume 94.2 fl (81-99); Mean Platelet Volume 11.5 fl (7.4-10.4); Monocytes # 0.3 K/mm3 (0.1-1.0); Monocytes % 5.1 % (1.7-9.3); Platelet Count 165 K/mm3 (142-424); Red Blood Count 4.66 M/mm3 (4.20-5.40); White Blood Count 6.4 K/mm3 (4.8-10.8)
[2023-03-01 18:09] LABS: Chloride 112 mmol/L (98-107); Potassium 4.4 mmoL/L (3.5-5.1); Sodium 142 mmol/L (136-145)
[2023-03-01 18:11] LABS: Blood Urea Nitrogen 19 mg/dl (7-17); Estimated Glomerular Filt Rate 54 ml/min (>60); GFR (African American) 65 ML/MIN (>60)
[2023-03-01 18:12] LABS: Alanine Aminotransferase 85 U/L (12-78); Albumin Level 3.7 g/dl (3.5-5.0); Albumin/Globulin Ratio 1.3 (1.1-1.8); Alkaline Phosphatase 122 U/L (38-126); Anion Gap 12.4 mEq/L (5-15); Aspartate Amino Transferase 72 U/L (14-36); Bilirubin,Total 0.5 mg/dl (0.2-1.3); Calcium 9.6 mg/dl (8.4-10.2); Carbon Dioxide 22 mmol/L (22.0-30.0); Globulin 2.8 g/dL (1.3-3.2); Glucose 99 mg/dl (74-100); Total Protein,Serum 6.5 g/dl (6.3-8.2)
== END ==
PROVIDERS: PCP Internal Medicine; Visit Provider Internal Medicine
DX: D50.9 Iron deficiency anemia, unspecified (principal); D68.62 Lupus anticoagulant syndrome; E53.8 Deficiency of other specified B group vitamins; I82.503 Chronic embolism and thrombosis of unspecified deep veins of lower extremity, bilateral; M15.0 Primary generalized (osteo)arthritis; G40.909 Epilepsy, unspecified, not intractable, without status epilepticus; Z51.81 Encounter for therapeutic drug level monitoring; Z79.01 Long term (current) use of anticoagulants
CPT/HCPCS: 80053; 85025; 85610

== ENCOUNTER 2025-02-13 15:09 | Outpatient (CLI) | payer MEDICARE, OTHER, SELFPAY ==
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
[2025-02-13 15:36] LABS: Hematocrit 43.4 % (37.0-47.0); Hemoglobin 13.5 g/dL (12.2-16.2); Immature Granulocytes % 0.2 %; Mean Corpuscular HGB Conc 31.1 g/dL (31.8-35.4); Mean Corpuscular Hemoglobin 29.9 pg (27.0-31.2); Mean Corpuscular Volume 96.2 fl (81-99); Nucleated Red Blood Cells % 0 %; Platelet Count 157 K/mm3 (142-424); Red Blood Count 4.51 M/mm3 (4.20-5.40); Red Cell Distribution Width-SD 44.8 fL; White Blood Count 8.4 K/mm3 (4.8-10.8)
[2025-02-13 15:41] LABS: INR 3.08 (0.9-1.1); Prothrombin Time 31.5 seconds (10.1-12.5)
[2025-02-13 18:46] LABS: Alanine Aminotransferase 27 U/L (12-78); Albumin Level 4.1 g/dl (3.5-5.0); Albumin/Globulin Ratio 1.7 (1.1-1.8); Alkaline Phosphatase 83 U/L (38-126); Anion Gap 11.2 mEq/L (5-15); Aspartate Amino Transferase 33 U/L (14-36); Bilirubin,Total 0.3 mg/dl (0.2-1.3); Blood Urea Nitrogen 17 mg/dl (7-17); Calcium 9.5 mg/dl (8.4-10.2); Carbon Dioxide 27 mmol/L (22.0-30.0); Chloride 109 mmol/L (98-107); Cholesterol 222 mg/dl (140-200); Creatinine,Serum 1.00 mg/dl (0.52-1.04); Estimated Glomerular Filt Rate 53 ml/min (>60); GFR (African American) 65 ML/MIN (>60); Globulin 2.4 g/dL (1.3-3.2); Glucose 97 mg/dl (74-100); HDL Cholesterol 95 mg/dl (40-60); Potassium 4.2 mmoL/L (3.5-5.1); Sodium 143 mmol/L (136-145); Total Protein,Serum 6.5 g/dl (6.3-8.2); Triglycerides 92 mg/dl (30-150)
[2025-02-13 19:36] LABS: Vitamin B12 > 1000 pg/mL (239-931)
== END 2025-02-13 23:59 | disposition home or self-care (01) ==
LOC: LAB 15:10
PROVIDERS: PCP Internal Medicine; Visit Provider Internal Medicine
DX: E78.5 Hyperlipidemia, unspecified (principal); D68.62 Lupus anticoagulant syndrome; E66.9 Obesity, unspecified; M15.0 Primary generalized (osteo)arthritis; Z98.84 Bariatric surgery status; Z79.01 Long term (current) use of anticoagulants
CPT/HCPCS: 36415; 80053; 80061; 82607; 85025; 85610

== ENCOUNTER 2025-03-12 09:00 | Outpatient (CLI) | payer MEDICARE, OTHER, SELFPAY ==
--- OUTSIDE RECORDS SUMMARY | 2025-03-13 10:12 | XMS_ITS | Clinical Summary ---
Author Organization [facility] Address [address] [place] [address] Care Team Providers Care Train Attendant Name Role Phone Timi Wen MD Primary Care Provider [phone] Allergies Active Allergy Reactions Criticality Noted Date [...] a day. Active Vitamin A 3 MG (90188 UT) capsule Take 1 capsule by mouth [...] (650 mg). 2 Active ergocalciferol 1.25 MG (51167 UT) capsule 3 Active Active Problems Problem [...] (started) -Mesenteric duplex completed 11/08, reviewed by [facility] recommends outpatient follow up with [...] drink first t joan in the morning (EYE-BUSINESS SUPPORT ASSOCIATE) to steady your nerves or to get [...] Scan 1945 [facility]-Medicare Annual Wellness (AWV) 1945 [facility]-Infant/Child/Adol SDOH Screenings 1945 [facility]-Obesity Intervention 12/21/1951 [facility]- SDOH Screenings 12/21/1963 [facility]-Adult SDOH Screenings 12/21/1963 [facility]-DTaP,Tdap,and Td Vaccine s (1 - Tdap) 1964 [facility]-Pneumococcal Vaccine: 50 + Years (1 of 1 - PCV) 12/21/1995 [facility]-Zoster Vaccines (1 of 2) 12/21/1995 [facility]-RSV Vaccine: 60+ Years o r (1 - 1-dose 75+ series) 2020 [id number] Vaccine (3 - Moderna risk series) 03/24/2021 [...] this topic Medical Devices Implanted Type Area Reproduction Machine Loader Device Identifier Shelf Expiration Date Model / Serial / Lot Plate 3.5mm Prox Tib Low Bnd 4h 154mm Lt - S. - [id number] Implanted:Qty: 1 on 11/08/2022 by Miles Francisco MD at [facility] Plate Synthes [facility]-11/09/2023 02.124.213 / . / Plate 3.5mm Lcp Med Prox Tib 6h Lt 119mm - S. - [id number] Implanted:Qty: 1 on 11/08/2022 by Miles Francisco MD at [facility] Plate Synthes [facility]11/09/2023 239.957 / . / Screw 3.5mm Cortex Selftap 38mm - [id number] Implanted:Qty: 1 on 11/08/2022 by Miles Francisco MD at [facility] Screw [employer]ynthes [facility]11/09/2023 204.838 / / Screw 3.5mm Cortex Selftap 46mm - S. - [id number] Implanted:Qty: 1 on 11/08/2022 by Miles Francisco MD at [facility] Screw [employer]ynthes [facility]-11/09/2023 204.846 / . / Screw 3.5mm Cortex Selftap 40mm - S. - [id number] Implanted:Qty: 2 on 11/08/2022 by Miles Francisco MD at [facility] Screw [employer]ynthes [facility]-11/09/2023 204.840 / . / Screw 3.5mm Cortex Selftap 28mm - S. - [id number] Implanted:Qty: 1 on 11/08/2022 by Miles Francisco MD at [facility] Screw [employer] [facility]-11/09/2023 204.828 / . / Screw 3.5mm Cortex Selftap 34mm - S. - [id number] Implanted:Qty: 1 on 11/08/2022 by Miles Francisco MD at [facility] Screw [employer]ynthes [facility]-11/09/2023 204.834 / . / Screw 3.5mm Cortex Selftap 70mm - S. - [id number] Implanted:Qty: 3 on 11/08/2022 by Miles Francisco MD at [facility] Screw [employer] [place]-[id number] 11/09/2023 204.870 / . / Screw 3.5mm Cortex Selftap 75mm - S. - [id number] Implanted:Qty: 1 on 11/08/2022 by Miles Francisco MD at [facility] Screw [employer] [place]-[id number] 11/08/2022 204.875 / . / Screw 3.5mm Star Lock Selftap 50mm - S. - [id number] Implanted:Qty: 2 on 11/08/2022 by Miles Francisco MD at [facility] Screw [employer] [place]-[id number] 11/09/2023 212.121 / . / Screw 3.5mm Star Lock Selftap 65mm - S. - [id number] Implanted:Qty: 1 on 11/08/2022 by Miles Francisco MD at [facility] Screw [employer] [place] 212.125 / . / Coupling Sheldon To Sheldon 8/8mm - [id number] Implanted:Qty: 10 on 11/05/2022 by Miles Francisco MD at [facility] Left: Leg [employer] ([facility])-[id number] 11/06/2023 4922-1-010 / / Clip Easy Bicortical Fixation [id number] - [id number] Implanted:Qty: 2 on 11/05/2022 by Miles Francisco MD at [facility] Left: Leg [employer] ([facility])-[id number] 11/06/2023 4922-8-350 / / Clip Easy Bicortical Fixation [id number] - [id number] Implanted:Qty: 2 on 11/05/2022 by Miles Francisco MD at [facility] Left: Leg [employer][id number] 8 11/06/2023 4922-8-400 / / Pin Transfix [id number] Smooth - [id number] Implanted:Qty: 2 on 11/05/2022 by Miles Francisco MD at [facility] Left: Leg [employer] [facility][id number] 8 11/06/2023 5020-7-180 / / Pin [id number] Blunt - [id number] Implanted:Qty: 2 on 11/05/2022 by Miles Francisco MD at [facility] Left: Leg [employer] ([employer])-[id number] 8 11/06/2023 5020-7-200 / / Screw 6.5mm Cancellous 32mm Thrd/85mm - [id number] Implanted:11/08 by Miles Francisco MD at [facility] (Quantity not on file) [employer] [place]-[id number] 217.085 / / Screw 6.5mm Cancellous 32mm Thrd/85mm - [id number] Implanted:11/08 by Miles Francisco MD at [facility] (Quantity not on file) [employer] [place]-[id number] 217.085 / / Procedures Procedure Name Priority Date/Time Associated Diagnosis Comments HEPATITIS C ANTIBODY - ED W/REFLEX TO HCV QUANT PCR Routine 08/07/2021 3:30 AM EST from Last 3 Months or Most Recently Relevant to Health Maintenance Results * [place] Hepatitis C Antibody (08/07/2021 3:30 AM EST) Hepatitis C Antibody Negative Negative 08/07/2021 5:52 AM EST [facility] Blood Venous blood specimen / Unknown Venipuncture / Unknown 08/07/2021 3:30 AM EST 08/07/2021 3:50 AM EST Joseline Tapia MD LAB BLOOD ORDERABLES Final Result [facility] [address] [place] [address] from Last 3 Months or Most Recently [...] Patient has decision-making capacity? Yes Care Teams Train Attendant Relationship Specialty Start Date End Date Timi Wen MD [address] [place] [address] PCP - General 08/05/21
== END 2025-03-12 23:59 ==
LOC: LAB.DROPOF 03-13 10:09
PROVIDERS: PCP Internal Medicine; Visit Provider Internal Medicine
DX: B34.9 Viral infection, unspecified (principal)
CPT/HCPCS: 87635